=== PATIENT | male | born 1960 | race Caucasian/White ===

== ENCOUNTER 2017-03-26 11:01 | Observation (INO) ==
--- NOTE | 2017-03-26 11:06 | Emergency Department Note ---
Disposition Clinical Impression: Cellulitis, leg Qualifiers: Laterality: left Qualified Code(s): L03.116 - Cellulitis of left lower limb Disposition: Admitted As Inpatient Condition: Good Referrals: NO,PCP [Non-Partnered Physician] - Forms: ED Satisfaction Letter Time of Disposition: 12:46 Extremity Problem HPI - General Chief complaint: ED Extremity Problem,Nontraumatic Stated complaint: CELLULITIS Time Seen by Provider: 03/26/17 11:03 Source: patient, EMS Mode of arrival: EMS Limitations: no limitations Nursing Notes Reviewed: Yes Vital Signs Reviewed: Yes - History of Present Illness HPI Narrative: 56-year-old who presents with left leg pain swelling redness. Patient was seen by home health care who marked the edges the wounds and seems to have expanded. Sternum for cellulitis. 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 Consistency: constant Injury Location: left Quality: burning Radiation: none Improves with: nothing Worsens with: nothing Associated symptoms: Reports: denies other symptoms - Related Data Home Medications Medication Instructions Recorded Confirmed Losartan [Cozaar] 100 mg PO QAM #0 05/18/15 01/08/17 Potassium Chloride 10 meq PO BID 05/18/15 01/08/17 Alprazolam [Xanax] 0.5 mg PO TID PRN 08/18/15 01/08/17 Aspirin Enteric Coated [Aspirin EC] 81 mg PO QAM 08/18/15 01/08/17 Atorvastatin Calcium [Lipitor] 80 mg PO DAILY 08/18/15 01/08/17 Furosemide [Lasix] 40 mg PO QAM 08/18/15 01/08/17 HydrALAZINE 50 mg PO QID 08/18/15 01/08/17 Rivaroxaban [Xarelto] 20 mg PO QAM 08/18/15 01/08/17 Linagliptin [Tradjenta] 01/08/17 Previous Rx's Medication Instructions Recorded CloNIDine HCl 0.2 mg PO BID #14 tablet 05/20/15 Metoprolol [Lopressor] 25 mg PO BID #30 tablet 05/20/15 Allergies Allergy/AdvReac Type Severity Reaction Status Date / Time acetaminophen Allergy Difficulty Verified 08/18/15 20:16 [From Tylenol-Codeine #3] Breathing codeine Allergy Difficulty Verified 08/18/15 20:16 [From Tylenol-Codeine #3] Breathing All systems ED: reviewed and negative except as stated. Constitutional: Denies: fever, chills, weakness, weight change Eyes: Denies: eye pain, eye discharge, vision change ENT ED: Denies: ear pain, throat pain, dental pain, hearing loss, epistaxis, congestion, dysphagia Cardiovascular: Denies: chest pain, palpitations, dyspnea on exertion, edema, syncope Respiratory: Denies: cough, dyspnea, wheezes, hemoptysis, stridor Gastrointestinal: Denies: abdominal pain, nausea, vomiting, diarrhea, constipation, hematemesis, melena, hematochezia Genitourinary: Denies: urgency, dysuria, frequency, hematuria Musculoskeletal: Reports: myalgia. Denies: back pain, neck pain, arthralgia Integumentary: Denies: rash, abrasion, lesions Neurological: Denies: headache, weakness, numbness, paresthesias, confusion, abnormal gait, vertigo Psychiatric: Denies: anxiety, depression, suicidal thoughts, homicidal thoughts , auditory hallucinations, visual hallucinations Endocrine: Denies: fatigue Hematological/Lymphatic: Denies: easy bleeding, easy bruising Allergic/Immunologic: Denies: facial swelling, urticaria Past Medical History - Past Medical History Medical history: Reports: atrial fibrillation, coronary artery disease, diabetes , hyperlipidemia, hypertension, myocardial infarction, other Surgical history: Reports: other Psychiatric history: Reports: anxiety, panic disorder - Social History Smoking Status: Former smoker Smokeless Tobacco Status: No Alcohol use: Reports: rarely Drug use: Reports: none Physical Exam - General Limitations: no limitations General appearance: alert, in no apparent distress - Head Head exam: atraumatic, normocephalic, normal inspection - Eye Eye exam: Present: normal appearance, PERRL, EOMI - ENT ENT exam: normal exam, normal oropharynx, mucous membranes moist - Neck Neck exam: Present: normal inspection, full ROM, trachea midline - Chest Chest inspection: Present: normal inspection, symmetric chest wall rise - Respiratory Respiratory exam: Present: normal lung sounds bilaterally - Cardiovascular Cardiovascular exam: Present: regular rate, normal rhythm, normal heart sounds - Abdominal Exam Abdominal exam: Present: soft, Non-Tender. Absent: tenderness, distention, guarding, rebound, rigidity - Expanded Lower Extremity Exam Lower leg exam: Present: swelling, erythema Neurovascular/Tendon exam: Absent: motor deficit, sensory deficit, tendon deficit Gait: observed and normal - Back Exam Back exam: Present: normal inspection, full ROM. Absent: tenderness - Neurological Exam Neurological exam: Present: alert, oriented X3 - Psychiatric Psychiatric exam: Present: normal affect, normal mood - Skin Skin exam: Present: rash (Lower extremity) Course - Reevaluation(s) Reevaluation #1: 56-year-old comes in with pain in his left leg began yesterday redness of the skin. Venous Doppler is negative for DVT his white count is elevated at 20 we are admit him for IV antibiotics. Time: 12:46 - Consultations Consultation #1: Discussed with Dr. Golden, admit Time: 12:44 Vital Signs Temperature 99 F 03/26/17 11:03 Pulse Rate 103 03/26/17 11:03 Respiratory Rate 24 03/26/17 11:03 Blood Pressure 223/122 03/26/17 11:03 O2 Sat by Pulse Oximetry 91 03/26/17 11:03 Temperature 99 F 03/26/17 11:03 Pulse Rate 83 03/26/17 12:04 Respiratory Rate 22 03/26/17 12:04 Blood Pressure 179/114 03/26/17 12:04 O2 Sat by Pulse Oximetry 91 03/26/17 12:04 Oxygen Delivery Oxygen Delivery Nasal Cannula Extremity Problem, Nontraumati - Lab Data Lab results reviewed: Yes I reviewed the patient's lab results. Result diagrams: 03/26/17 11:27 03/26/17 11:27 Lab Results 03/26/17 03/26/17 Range/Units 11:27 11:27 WBC 20.6 H (4.3-11.1) K/mcL RBC 3.65 L (4.19-5.50) M/mcL Hgb 10.4 L (12.9-16.9) g/dL Hct 34.1 L (37.5-50.1) % MCV 93.4 (83.0-100.0) fL MCH 28.5 (28.0-33.3) pg MCHC 30.5 L (31.6-35.5) g/dL RDW 15.6 H (11.5-14.5) % Plt Count 318 (140-400) K/mcL MPV 9.2 L (9.4-12.4) fL Immature Gran % 0.6 (0-4) % Seg Neutrophils % 91.7 % Lymphocytes % 3.5 % Monocytes % 4.0 % Eosinophils % 0.0 % Basophils % 0.2 % Neutrophils # 18.9 H (1.6-8.9) K/mcL Lymphocytes # 0.7 (0.6-4.6) K/mcL Monocytes # 0.8 (0.0-1.3) K/mcL Eosinophils # 0.0 (0.0-0.6) K/mcL Basophils # 0.1 (0.0-0.2) K/mcL Sodium 138 (136-145) mEq/L Potassium 3.7 (3.5-4.5) mEq/L Chloride 101 (98-109) mEq/L Carbon Dioxide 24 (19-29) mEq/L BUN 18 (8-26) mg/dL Creatinine 1.37 H (0.72-1.25) mg/dL Est GFR ( Amer) > 60 (> 60) Est GFR (Non-Af Amer) 54 L (> 60) BUN/Creatinine Ratio 13 (6-26) Glucose 198 H (70-99) mg/dL Calculated Osmolality 293 (280-300) Calcium 8.4 L (8.6-10.8) mg/dL - Radiology Data Radiology results reviewed: Yes I reviewed the patient's radiology results. Venous Dopplers negative for DVT.
[2017-03-26 11:36] LABS: Basophils # 0.1 K/mcL (0.0-0.2); Basophils % 0.2 %; Hematocrit 34.1 % (37.5-50.1); Hemoglobin 10.4 g/dL (12.9-16.9); Immature Granulocytes % 0.6 % (0-4); Lymphocytes # 0.7 K/mcL (0.6-4.6); Lymphocytes % 3.5 %; Mean Corpuscular HGB Conc 30.5 g/dL (31.6-35.5); Mean Corpuscular Hemoglobin 28.5 pg (28.0-33.3); Mean Corpuscular Volume 93.4 fL (83.0-100.0); Mean Platelet Volume 9.2 fL (9.4-12.4); Monocytes # 0.8 K/mcL (0.0-1.3); Neutrophils # 18.9 K/mcL (1.6-8.9); Platelet Count 318 K/mcL (140-400); Red Blood Count 3.65 M/mcL (4.19-5.50); Red Cell Distribution Width 15.6 % (11.5-14.5); Segmented Neutrophils % 91.7 %
[2017-03-26 11:47] LABS: BUN/Creatinine Ratio 13 (6-26); Blood Urea Nitrogen 18 mg/dL (8-26); Calcium 8.4 mg/dL (8.6-10.8); Carbon Dioxide 24 mEq/L (19-29); Chloride 101 mEq/L (98-109); Glucose 198 mg/dL (70-99); Osmolality,Calculated 293 (280-300); Potassium 3.7 mEq/L (3.5-4.5); Sodium 138 mEq/L (136-145); eGFR For African Americans > 60 (> 60); eGFR For Non-African Americans 54 (> 60)
[2017-03-26] MEDS ORDERED: Vancomycin 1,000 MG in D5% in Water 250 ML IVPB ONE (11:58)
[2017-03-26] MEDS ORDERED: Piperacillin/Tazobactam 3.375 GM in D5% in Water (Mini-Bag+) 100 ML IVPB ONE (11:58)
--- NOTE | 2017-03-26 14:10 | Internal Med History&Physical ---
Date of Encounter: 03/26/17 Time of Encounter: 13:45 Assessment and Plan (1) Left leg cellulitis Current visit: Yes Status: Acute left leg swelling, pain and redness yesterday afternoon with associated fever of 101 and chills. He thinks he injured his leg yesterday morning wehn he was at [facility]. No nausea, no vomiting, no abdominal pain, no bleeding, no rash. No prior history of leg cellulitis but he has had multiple episodes of panniculitis. In our ED, he was afebrile. negative venous doppler of left leg. Continue IV vancomycin. (2) CKD (chronic kidney disease) stage 3, GFR 30-59 ml/min Current visit: Yes Status: Acute close monitor. avoid nephrotoxic agents. (3) Diabetes Current visit: Yes Status: Chronic ISS. diabetic diet. Qualifiers: Diabetes mellitus type: type 2 Diabetes mellitus complication status: with hyperglycemia Diabetes mellitus usp insulin use: without termite helper use Qualified Code(s): E11.65 - Type 2 diabetes mellitus with hyperglycemia (4) Hypertension Current visit: Yes Status: Chronic not controlled. resume home dose of hydralazine, clonidine and toprol. hydralazine prn. Qualifiers: Hypertension type: essential hypertension Qualified Code(s): I10 - Essential (primary) hypertension (5) INGRID (obstructive sleep apnea) Current visit: No Status: Chronic non-compliance with cpap (6) Morbid obesity with BMI of 60.0-69.9, adult Current visit: No Status: Chronic bmi 61 Internal Medicine - H&P: HPI Chief complaint: left leg swelling and erythma for a few days. Admitted From: Home Plans for Post Hospital Care: Home History of present illness: Mr. Lucero is a 56 year old male with past medical history of atrial fibrillation , CAD, DM, HTN, INGRID not on CPAP and severe obesity BMI 61 who developed left leg swelling, pain and redness yesterday afternoon with associated fever of 101 and chills. He thinks he injured his leg yesterday morning wehn he was at [facility]. No nausea, no vomiting, no abdominal pain, no bleeding, no rash. No prior history of leg cellulitis but he has had multiple episodes of panniculitis. In our ED, he was afebrile. Past Med Surg Social Fam HX - Past Medical History Medical history: atrial fibrillation, coronary artery disease, diabetes, hyperlipidemia, hypertension, myocardial infarction, other Psychiatric history: anxiety, panic disorder - Past Surgical History Surgical History: other - Social History Smoking Status: Former smoker Smokeless Tobacco Status: No Alcohol use: rarely Drug use: none - Family History Father Adopted: No Family Member Ethnicity: Non- Living Status: Hx Family Cardiac Disorders: Yes Hx Family Respiratory Disorders: Yes Hx Family Cancer: Yes Hx Family GI Disorders: No Hx Family Endocrine Disorder: Yes Hx Family Neuromuscular Disorders: No Hx Family Neurologic Disorders: Yes Hx Family HEENT Disorders: No Hx Family Autoimmune Disorders: No Internal Medicine - H&P: Meds Potassium Chloride 10 meq PO BID 05/18/15 [History] CloNIDine HCl 0.2 mg PO BID #14 tablet 05/20/15 [Rx] Alprazolam [Xanax] 0.5 mg PO TID PRN 08/18/15 [History] Aspirin Enteric Coated [Aspirin EC] 81 mg PO QAM 08/18/15 [History] Rivaroxaban [Xarelto] 20 mg PO QAM 08/18/15 [History] Linagliptin [Tradjenta] 5 mg PO DAILY 01/08/17 [History] Hydralazine HCl 50 mg PO TID 03/26/17 [History] Metoprolol XL (24 HR) Succ [Toprol XL] 25 mg PO DAILY 03/26/17 [History] Spironolactone [Aldactone] 100 mg PO DAILY 03/26/17 [History] Allergies acetaminophen [From Tylenol-Codeine #3] Allergy (Verified 08/18/15 20:16) Difficulty Breathing codeine [From Tylenol-Codeine #3] Allergy (Verified 08/18/15 20:16) Difficulty Breathing All Systems PM: A 10-system review of systems was performed and is negative for pertinent findings except as documented above in the HPI. - Constitutional Vitals: Temp Pulse Resp BP Pulse Ox 99 F 80 26 188/88 92 03/26/17 11:03 03/26/17 13:08 03/26/17 13:08 03/26/17 13:08 03/26/17 13:08 General appearance: Present: cooperative, A&O X 3, pleasant, no acute distress, answers questions appropriately - Neck Neck exam general surgery: Present: supple, trachea midline. Absent: lymphadenopathy - Respiratory Respiratory exam: Present: CTAB - Cardiovascular Cardiovascular exam: Present: RRR - GI/Abdominal GI/Abdominal exam: Present: normal bowel sounds, soft. Absent: tenderness Additional comments: abundant subcutaneous fat that is hanging out of the hospital bed. - Extremities Exam Additional comments: left leg: swelling, erythema and very tender to palpation. - Neurological Exam Neurological exam: Present: alert, oriented X3. Absent: facial droop, speech deficit - Skin Additional comments: there are multiple break on his skin at his abdominal wall. Internal Med - H&P Results - Labs CBC & Chem 7: 03/26/17 11:27 03/26/17 11:27
[2017-03-26] MEDS ORDERED: Ondansetron 4 MG/2 ML VIAL IVP PRN (14:12)
[2017-03-26] MEDS ORDERED: Naloxone 0.4 MG/ML INJ IVP PRN (14:12)
[2017-03-26] MEDS ORDERED: *HR* OxyCODONE Immed Rel 5 MG TABLET PO PRN (14:14)
--- NOTE | 2017-03-26 14:34 | Venous Imaging Report ---
LE Venous Duplex Patient Name:Car Lucero Order Number:[id number] Procedure Date:03/26/2017 Date:9Age:56 yrs Gender:Male Location:[facility] ED Room #: [place] Manager:Lexi Gray RVT, RDCS Referring MD:Chico Kat MD mounted police:None Reading MD:Mitesh Lamb MD Primary Indications:left leg swelling and redness Secondary Indications: Risk Factors Yes/No Hx of DVT No Anticoagulants Yes Impressions: Normal left lower extremity deep and superficial venous exam. Normal contralateral common femoral vein. Recommendations: Test completed on 03/26/2017 at 12:51:28 pm. Critical findings reported to Dr. Kat in person at 12:51:41 pm on 03/26/2017 by Lexi Gray RVT, RDCS. Findings Venous Duplex Results: Right: Venous imaging of the lower extremity reveals full patency and normal vessel compressibility of the right common femoral. Doppler signals in the evaluated veins were normal. Left: Venous imaging of the lower extremity reveals full patency and normal vessel compressibility of the left distal iliac, left common femoral, left superficial femoral, left popliteal, left posterior tibial, left peroneal, left saphenofemoral junction, left great saphenous and left lesser saphenous. Doppler signals in the evaluated veins were normal. The left posterior tibial and left peroneal veins were not well visualized. Lower Extremity Venous Duplex Side Vein Compress Spontaneous Flow Augment Diameter (cm) Depth (cm) Left Distal Iliac Normal Yes Phasic Yes Left Common Femoral Normal Yes Phasic Yes Left Superficial Femoral Normal Yes Phasic Yes Left Popliteal Normal Yes Phasic Yes Left Posterior Tibial Normal Yes Phasic Yes Left Peroneal Normal Yes Phasic Yes Left Saphenofemoral Junction Normal Yes Phasic Yes Left Great Saphenous Normal Yes Phasic Yes Left Lesser Saphenous Normal Yes Phasic Yes Right Common Femoral Normal Yes Phasic Yes Updated by Mitesh Lamb MD on 03/26/2017 2:24:44 PM electronically signed on 03/26/2017 2:26:49 PM with status of Final
[2017-03-26] MEDS ORDERED: Dextrose Gel 15 GM PO PRN ×2 (14:52)
[2017-03-26] MEDS ORDERED: D5% in Water 1,000 ML IVC PRN (14:52)
[2017-03-26] MEDS ORDERED: *HR* Dextrose 50 % in Water (Syg) 50 ML SYRINGE IVP PRN (14:52)
[2017-03-26] MEDS ORDERED: Vancomycin 2,000 MG in D5% in Water 250 ML IVPB SCH (15:00)
[2017-03-26] MEDS ORDERED: hydrALAZINE 25 MG TABLET PO SCH (15:00)
[2017-03-26] MEDS: Vancomycin 2,000 MG in D5% in Water 500 ML IVPB SCH (16:23)
[2017-03-26] MEDS: Insulin LISPRO 300 UNITS/3 ML VIAL SQ SCH ×2 (17:09→21:06)
[2017-03-26] MEDS ORDERED: cloNIDine HCl 0.1 MG TABLET PO SCH (21:00)
[2017-03-26] MEDS: cloNIDine HCl 0.1 MG TABLET PO SCH (21:13)
[2017-03-26] MEDS: hydrALAZINE 25 MG TABLET PO SCH (21:13)
[2017-03-26] MEDS: 0.9 % Sodium Chloride 1,000 ML IVC SCH (22:02)
[2017-03-26] MEDS ORDERED: Acetaminophen 325 MG TABLET PO PRN (22:20)
[2017-03-27] MEDS: Vancomycin 2,000 MG in D5% in Water 500 ML IVPB SCH ×2 (03:20→15:15)
[2017-03-27] MEDS: ALPRAZolam 0.5 MG TABLET PO PRN (03:39)
[2017-03-27 03:40] LABS: Basophils # 0.1 K/mcL (0.0-0.2); Basophils % 0.3 %; Hematocrit 31.4 % (37.5-50.1); Hemoglobin 9.4 g/dL (12.9-16.9); Immature Granulocytes % 0.6 % (0-4); Lymphocytes # 1.2 K/mcL (0.6-4.6); Lymphocytes % 7.8 %; Mean Corpuscular HGB Conc 29.9 g/dL (31.6-35.5); Mean Corpuscular Hemoglobin 27.9 pg (28.0-33.3); Mean Corpuscular Volume 93.2 fL (83.0-100.0); Mean Platelet Volume 9.9 fL (9.4-12.4); Monocytes # 0.9 K/mcL (0.0-1.3); Neutrophils # 13.3 K/mcL (1.6-8.9); Platelet Count 273 K/mcL (140-400); Red Blood Count 3.37 M/mcL (4.19-5.50); Red Cell Distribution Width 15.4 % (11.5-14.5); Segmented Neutrophils % 85.3 %
[2017-03-27 03:52] LABS: Hemoglobin A1C 5.8 %
[2017-03-27 03:53] LABS: BUN/Creatinine Ratio 14 (6-26); Blood Urea Nitrogen 18 mg/dL (8-26); Carbon Dioxide 25 mEq/L (19-29); Chloride 101 mEq/L (98-109); Potassium 3.6 mEq/L (3.5-4.5); Sodium 135 mEq/L (136-145)
[2017-03-27 03:54] LABS: Calcium 7.8 mg/dL (8.6-10.8); Glucose 151 mg/dL (70-99); Magnesium 1.4 mg/dL (1.6-2.6); Osmolality,Calculated 285 (280-300); eGFR For African Americans > 60 (> 60); eGFR For Non-African Americans 57 (> 60)
[2017-03-27] MEDS: hydrALAZINE 25 MG TABLET PO SCH ×2 (08:54→20:07)
[2017-03-27] MEDS: Aspirin Enteric Coated 81 MG Tablet PO SCH (08:54)
[2017-03-27] MEDS: cloNIDine HCl 0.1 MG TABLET PO SCH ×3 (08:54→20:07)
[2017-03-27] MEDS: Insulin LISPRO 300 UNITS/3 ML VIAL SQ SCH ×4 (08:54→22:12)
[2017-03-27] MEDS: Metoprolol XL (24 HR) Succ 25 MG TAB.ER.24H PO SCH (08:55)
[2017-03-27] MEDS: *HR* Rivaroxaban 10 MG TABLET PO SCH (08:55)
--- NOTE | 2017-03-27 10:35 | Internal Med Progress Note ---
<Latonya Patel - Last Filed: 03/27/17 14:25> Date of Encounter: 03/27/17 Time of Encounter: 09:00 - Assessment and plan (1) Left leg cellulitis Current Visit: Yes Status: Acute Assessment and plan: Patient with extreme obesity, diabetes, and lower extremity chronic vascular changes who presumably injured his leg and subsequently developed cellulitis of the left lower extremity. Patient has been having fevers and chills however he denies nausea and vomiting. Lower extremity venous Doppler demonstrated: Full patency and compressibility throughout the left lower extremity and the right lower extremity. No evidence of DVT. On admission laboratory results demonstrated leukocytosis with left shift. Today: WBCs 15.6 < 20.6, neutrophils 13.3 < 18.9 Supportive therapy and pain control IV fluids at maintenance 100 miles an hour Continue IV vancomycin Continue daily lower extremity evaluation to assess for advancement versus resolution of lower extremity cellulitis. Cellulitic edges are marked with pen. Today there is no evidence of advancement. Continue diabetic management and glucose control to aid in healing. Consult wound care Patient has home health for management of chronic wound on the panniculus. He would like to continue home health on discharge for cellulitic changes. Patient is adamant that he would like to be discharged tomorrow to attend his birthday constitution party. Discussed with patient the importance of continuing his antibiotic regimen and remaining inpatient. PT and OT for evaluation patient likely need care home/rehabilitation prior to going home. Patient declines this at this time. PT will recommend home health to address chronic needs for endurance and tolerance. The assessment and plan as outlined above was discussed with the patient and/or family members who expressed understanding and agreement. All questions were answered. (2) INGRID (obstructive sleep apnea) Current Visit: Yes Status: Chronic Assessment and plan: On physical exam, observed loud snoring and apneic events upon entering the room. Discussed this with patient who admitted that he had several sleep studies done in the past that demonstrated he had sleep apnea. He also states that he has had a CPAP at home however he does not wear it at night stating that he used to tear at off so he just quit using it. Long-term risks associated with noncompliance discussed with patient to include pulmonary hypertension and cardiac complications. Patient was strongly encouraged to continue his CPAP and reassessment/further evaluation with pulmonology. Patient states that he will may be consider it. The assessment and plan as outlined above was discussed with the patient and/or family members who expressed understanding and agreement. All questions were answered. (3) Morbid obesity with BMI of 60.0-69.9, adult Current Visit: Yes Status: Chronic (4) Diabetes Current Visit: Yes Status: Chronic Assessment and plan: Hold oral hypoglycemics Daily Glucose checks per protocol Sliding-scale insulin corrective low dose per protocol Patient appears relatively well controlled as his hemoglobin A1c is 5.8. Qualifiers: Diabetes mellitus type: type 2 Diabetes mellitus complication status: with hyperglycemia Diabetes mellitus tank terminal gauger insulin use: without mcfp use Qualified Code(s): E11.65 - Type 2 diabetes mellitus with hyperglycemia (5) CKD (chronic kidney disease) stage 3, GFR 30-59 ml/min Current Visit: Yes Status: Acute Assessment and plan: Daily monitoring of renal function via BUN, creatinine, GFR on daily labs. BUN: 18 = 18 Creatinine: 1.29 < 1.37 GFR: >60 Renally dose medications. Avoid nephrotoxic medications. - Subjective Interval history: Patient was seen and examined. Events overnight include an incident for which patient attempted to get up to use the restroom however upon standing he urinated on himself and fell forward landing on his knees however due to his extreme obesity was unable to get himself off the floor. 6 nurses attempted to aid the patient however ultimately a lift was used to put patient back into bed. Upon discussing the incident with patient he states that he was " perfectly stable "however he just slipped in a puddle of urine. Patient is adamant that he can get up himself. However patient was unable to roll over in the bed on his own for physical examination. Patient is a fall risk. Patient reports that he has home health care for his abdominal wound that is healing well and that he would like to be seen outpatient with home health for care of his lower extremity. Patient reports fevers and chills overnight. MAXIMUM TEMPERATURE 100.4. Hypertension 154/66 hydralazine when necessary and metoprolol daily. Patient is continued on vancomycin drip without flushing/ rash. Patient's is at bedside. Patient states that he would like to go home tomorrow for his birthday as his family has "planned a big to do ". - Constitutional Vitals: Temp Pulse Resp BP Pulse Ox 98.6 F 67 20 154/66 4 03/27/17 06:42 03/27/17 06:42 03/27/17 06:42 03/27/17 06:42 03/27/17 09:18 General appearance: Present: cooperative, A&O X 3, pleasant, no acute distress, answers questions appropriately Exam: General: Cooperative, pleasant, no acute distress, alert and oriented 3, answers questions appropriately, on initial examination, patient was snoring loudly exhibiting apneic episodes HEENT: Normocephalic, atraumatic, neck supple, trachea midline, Conjunctiva pink , sclera anicteric, EOMI, PERRL, oral mucosa moist, no orophargeal erythema or exudates, patient is wearing his glasses. Respiratory: No accessory muscle usage, diminished lung sounds throughout, clear to auscultation bilaterally, no wheezes/rhonchi/rales appreciated Cardiovascular: Distant sounds Regular rate and rhythm, S1 and S2 present, no murmurs/rubs/gallops/clicks appreciated GI/abdominal: Impressively large panniculus with healing wound, nontender, soft , normal bowel sounds, no peritoneal signs Extremities: Left calf tenderness, noncyanotic, chronic lower extremity vascular changes, left lower extremity with erythema and cellulitis with skin markings, warmth, bilateral pedal edema appreciated, lower extremity pulses are not palpable due to edema and subcutaneous fat, no weeping or open wounds are appreciable on the lower extremities. Neurological: Alert and oriented 3, no facial droop, no focal deficits Skin: Dry, intact, abnormal purple/red lower extremity chronic venous stasis changes with left extremity exhibiting cellulitic changes erythema, warmth just below the knee and distal to the ankle. Internal Medicine: Result - Labs CBC & Chem 7: 03/27/17 02:58 03/27/17 02:58 Labs: Short CBC 03/27/17 Range/Units 02:58 WBC 15.6 H (4.3-11.1) K/mcL Hgb 9.4 L (12.9-16.9) g/dL Hct 31.4 L (37.5-50.1) % Plt Count 273 (140-400) K/mcL Neutrophils # 13.3 H (1.6-8.9) K/mcL BMP 03/27/17 02:58 Sodium 135 L Potassium 3.6 Chloride 101 Carbon Dioxide 25 BUN 18 Creatinine 1.29 H Glucose 151 H Calcium 7.8 L Consult Discharge Plan - Plan Referrals: Wendy Izaguirre MD [Primary Care Provider] - <Manuelito Duenas Giuseppe - Last Filed: 03/27/17 15:13> Date of Encounter: 03/27/17 - Constitutional Vitals: Temp Pulse Resp BP Pulse Ox 99.9 F H 56 22 137/79 95 03/27/17 15:07 03/27/17 15:07 03/27/17 15:07 03/27/17 15:07 03/27/17 15:07 Internal Medicine: Result - Labs CBC & Chem 7: 03/27/17 02:58 03/27/17 02:58 Labs: Short CBC 03/27/17 Range/Units 02:58 WBC 15.6 H (4.3-11.1) K/mcL Hgb 9.4 L (12.9-16.9) g/dL Hct 31.4 L (37.5-50.1) % Plt Count 273 (140-400) K/mcL Neutrophils # 13.3 H (1.6-8.9) K/mcL BMP 03/27/17 02:58 Sodium 135 L Potassium 3.6 Chloride 101 Carbon Dioxide 25 BUN 18 Creatinine 1.29 H Glucose 151 H Calcium 7.8 L - Attending Attestation I examined this patient and my medical decision-making was reviewed with the OPHTHALMIC TECHNOLOGIST/PA/Advanced Practice Nurse/Resident Physician. I agree with the documented findings, disposition and treatment plan as described except to the extent set forth below. Continue with iv vancomycin. Monitor vanc levels. Agree with resident.
[2017-03-27] MEDS: 0.9 % Sodium Chloride 1,000 ML IVC SCH ×2 (12:22)
[2017-03-27] MEDS: Magnesium Oxide 400 MG TABLET PO SCH (12:39)
[2017-03-28] MEDS: 0.9 % Sodium Chloride 1,000 ML IVC SCH ×2 (00:31→13:07)
[2017-03-28] MEDS: Vancomycin 2,000 MG in D5% in Water 500 ML IVPB SCH ×2 (04:32→16:46)
[2017-03-28] MEDS: Insulin LISPRO 300 UNITS/3 ML VIAL SQ SCH ×4 (08:39→23:02)
[2017-03-28] MEDS: hydrALAZINE 25 MG TABLET PO SCH ×2 (08:40→19:40)
[2017-03-28] MEDS: cloNIDine HCl 0.1 MG TABLET PO SCH ×3 (08:40→19:40)
[2017-03-28] MEDS: Aspirin Enteric Coated 81 MG Tablet PO SCH (08:40)
[2017-03-28] MEDS: Magnesium Oxide 400 MG TABLET PO SCH (08:40)
[2017-03-28] MEDS: Metoprolol XL (24 HR) Succ 25 MG TAB.ER.24H PO SCH (08:40)
[2017-03-28] MEDS: *HR* Rivaroxaban 10 MG TABLET PO SCH (09:42)
--- NOTE | 2017-03-28 16:19 | Internal Med Progress Note ---
Date of Encounter: 03/28/17 Time of Encounter: 16:17 - Assessment and plan (1) Obesity (BMI 35.0-39.9 without comorbidity) Current Visit: Yes Status: Acute Assessment and plan: Counseling provided (2) Diabetes Current Visit: Yes Status: Chronic Assessment and plan: On Accu-Chek 4 times a day with sliding scale coverage hemoglobin A1c 5.8 Qualifiers: Diabetes mellitus type: type 2 Diabetes mellitus complication status: without complication Diabetes mellitus director long term care insulin use: without director long term care use Qualified Code(s): E11.9 - Type 2 diabetes mellitus without complications (3) Cellulitis, leg Current Visit: Yes Status: Acute Assessment and plan: Bilateral lower extremity chronic stasis dermatitis as well as acute cellulitis. White count was elevated in the range of 20,000 on admission. IV vancomycin has been started and since then white count has dropped down to 15, 000 range and her rash is receding from marker lines. Ultrasound of lower extremity was done which was negative for DVT and his tenderness has also gone down. Since white count was quite elevated therefore will continue IV vancomycin for 2 weeks and will order a PICC line. I discussed this patient who showed good understanding and agreement Qualifiers: Laterality: unspecified laterality Qualified Code(s): L03.119 - Cellulitis of unspecified part of limb (4) CKD (chronic kidney disease) stage 3, GFR 30-59 ml/min Current Visit: Yes Status: Acute Assessment and plan: Creatinine slightly elevated seems to be improving (5) Hypomagnesemia Current Visit: Yes Status: Acute Assessment and plan: Magnesium 1.4 kg of IV magnesium will be given. - Time Spent With Patient 25 - 35 minutes - Subjective Interval history: Mr. Car Lucero is a 56-year-old morbidly obese male with underlying diabetes and venous stasis dermatitis of lower extremity presented with bilateral lower extremity cellulitis with elevated white count in the range of 20,000. IV vancomycin as started and there his rash is getting better. He might need full 2 weeks of IV vancomycin. - Constitutional Vitals: Temp Pulse Resp BP Pulse Ox 98.5 F 68 15 149/78 98 03/28/17 15:16 03/28/17 15:16 03/28/17 15:16 03/28/17 15:16 03/28/17 15:16 General appearance: Present: cooperative, A&O X 3, pleasant, no acute distress, answers questions appropriately - Head Head exam: Present: atraumatic, normocephalic - Eye Eye exam: Present: PERRL, conjuntiva pink, sclera anicteric Pupils: Present: PERRL - Neck Neck exam general surgery: Present: supple, trachea midline. Absent: lymphadenopathy - Respiratory Respiratory exam: Present: CTAB. Absent: accessory muscle use, rales, rhonchi, wheezes - Cardiovascular Cardiovascular exam: Present: RRR, +S1, +S2. Absent: diastolic murmur, gallop, rubs, systolic murmur - GI/Abdominal GI/Abdominal exam: Present: normal bowel sounds, soft, no peritoneal signs. Absent: distended, tenderness - Expanded Lower Extremities Exam Lower Leg exam: Present: erythema, swelling (Bilateral lower extremity chronic dermatitis swelling and rash which seems to be receding from the marked lines. Calf and popliteal fossae does not appear to be tender Bruce sign negative) Internal Medicine: Result - Labs CBC & Chem 7: 03/27/17 02:58 03/27/17 02:58 Consult Discharge Plan - Plan Referrals: Wendy Izaguirre MD [Primary Care Provider] -
[2017-03-28] MEDS: ALPRAZolam 0.5 MG TABLET PO PRN (19:40)
[2017-03-29] MEDS: Vancomycin 2,000 MG in D5% in Water 500 ML IVPB SCH ×2 (04:41→15:55)
[2017-03-29] MEDS: Magnesium Oxide 400 MG TABLET PO SCH (08:44)
[2017-03-29] MEDS: hydrALAZINE 25 MG TABLET PO SCH (08:44)
[2017-03-29] MEDS: Aspirin Enteric Coated 81 MG Tablet PO SCH (08:44)
[2017-03-29] MEDS: cloNIDine HCl 0.1 MG TABLET PO SCH ×2 (08:44→15:54)
[2017-03-29] MEDS: *HR* Rivaroxaban 10 MG TABLET PO SCH (08:44)
[2017-03-29] MEDS: Metoprolol XL (24 HR) Succ 25 MG TAB.ER.24H PO SCH (08:45)
[2017-03-29 11:23] VITALS: BP 167/91
[2017-03-29] MEDS: Insulin LISPRO 300 UNITS/3 ML VIAL SQ SCH (11:40)
--- NOTE | 2017-03-29 13:26 | Discharge Summary ---
Date of Encounter: 03/29/17 Time of Encounter: 13:24 - Discharge Diagnosis (1) Obesity (BMI 35.0-39.9 without comorbidity) Priority: Secondary Status: Acute (2) Diabetes Priority: Secondary Status: Chronic Qualifiers: Diabetes mellitus type: type 2 Diabetes mellitus complication status: without complication Diabetes mellitus mcc insulin use: without mcc use Qualified Code(s): E11.9 - Type 2 diabetes mellitus without complications (3) Cellulitis, leg Priority: Primary Status: Acute Qualifiers: Laterality: unspecified laterality Qualified Code(s): L03.119 - Cellulitis of unspecified part of limb (4) CKD (chronic kidney disease) stage 3, GFR 30-59 ml/min Priority: Secondary Status: Acute (5) Hypomagnesemia Priority: Secondary Status: Acute - Discharge Medications Prescriptions: Vancomycin/0.9 % Sod Chloride [Vancomycin-0.9% NaCl 2 G/250] 2 gm IV Q12HR 11 Days ALPRAZolam [Xanax 0.5 MG Tablet] 0.5 mg PO TID PRN #20 tablet NS PRN Reason: Anxiety Magnesium Oxide [Mag-Ox] 400 mg PO DAILY #60 tablet Rivaroxaban [Xarelto] 20 mg PO QAM #30 tablet Home Medications: Potassium Chloride 10 meq PO BID 05/18/15 [History] CloNIDine HCl 0.2 mg PO BID #14 tablet 05/20/15 [Rx] Alprazolam [Xanax] 0.5 mg PO TID PRN 08/18/15 [History] Aspirin Enteric Coated [Aspirin EC] 81 mg PO QAM 08/18/15 [History] Linagliptin [Tradjenta] 5 mg PO DAILY 01/08/17 [History] Hydralazine HCl 50 mg PO TID 03/26/17 [History] Metoprolol XL (24 HR) Succ [Toprol Xl] 25 mg PO DAILY 03/26/17 [History] Spironolactone [Aldactone] 100 mg PO DAILY 03/26/17 [History] ALPRAZolam [Xanax 0.5 MG Tablet] 0.5 mg PO TID PRN #20 tablet NS 03/29/17 [Rx] Magnesium Oxide [Mag-Ox] 400 mg PO DAILY #60 tablet 03/29/17 [Rx] Rivaroxaban [Xarelto] 20 mg PO QAM #30 tablet 03/29/17 [Rx] Vancomycin/0.9 % Sod Chloride [Vancomycin-0.9% NaCl 2 G/250] 2 gm IV Q12HR 11 Days 03/29/17 [Rx] Allergies/Adverse Reactions: Allergies acetaminophen [From Tylenol-Codeine #3] Allergy (Verified 08/18/15 20:16) Difficulty Breathing codeine [From Tylenol-Codeine #3] Allergy (Verified 08/18/15 20:16) Difficulty Breathing Date of admission: 03/26/17 13:16 Primary care physician: Wendy Izaguirre MD Consults: 03/26/17 15:11 Consult to Entry Level Finance [CONS] Routine Reason for SW Consult: Had [facility] prior to admission 03/26/17 17:03 Consult to Wound Care [CONS] Routine Reason for Consult: L lower abdominal wound. Seen in wound care by Dr. 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 Med Ray a 57-year-old male admitted for bilateral lower extremity cellulitis. He was started on vancomycin that has seemed to improve his rash and pain and also hasreduced his white count from 20,000-15,000 They plan to continue him on IV vancomfor 2 weeks and PICC line has been placed in his right arm. Home care consultation will be requested Upon patient's request he will also be a prescription also for Xarelto and Xanax He is advised to follow with his familyas outpatient. Leg ultrasound done during this hospitalization was negative for DVT. Hospital course: Mr. Lucero is a 57 year old male Time spent discussing smoking cessation with patient: 3 to 10 minutes - Time Spent with Patient Total time spent providing and/or coordinating discharge services: Greater than 30 minutes - Constitutional Vitals: Temp Pulse Resp BP Pulse Ox 98.0 F 69 20 167/91 96 03/29/17 11:19 03/29/17 11:19 03/29/17 11:19 03/29/17 11:19 03/29/17 11:19 General appearance: Present: cooperative, A&O X 3, pleasant, no acute distress, answers questions appropriately - Head Head exam: Present: atraumatic, normocephalic - Eye Eye exam: Present: PERRL, conjuntiva pink, sclera anicteric Pupils: Present: PERRL - Neck Neck exam general surgery: Present: supple, trachea midline. Absent: lymphadenopathy - Respiratory Respiratory exam: Present: CTAB. Absent: accessory muscle use, rales, rhonchi, wheezes - Cardiovascular Cardiovascular exam: Present: RRR, +S1, +S2. Absent: diastolic murmur, gallop, rubs, systolic murmur - GI/Abdominal GI/Abdominal exam: Present: normal bowel sounds, soft, no peritoneal signs. Absent: distended, tenderness - Extremities Exam Extremities exam: Present: warm, radial pulses palpable and symetrical. Absent : calf tenderness, cyanotic, pedal edema Additional comments: bilateral lower extremity examined and the rash in front and the back of both legs is improving. No significant tenderness now .pulses are palpable and no significant swelling or skin break. - Neurological Exam Neurological exam: Present: CN II-XII intact, oriented X3, no focal deficits. Absent: pronater drift, facial droop, speech deficit - Skin Skin exam: Present: dry, intact
--- NOTE | 2017-03-29 13:56 | Physician Discharge Referral ---
Home Health/Hosp Referral Info Attending Provider: uriel Provider in Charge Post Discharge: PCP (patient needs IVantibiotics mainly vancomycin for 11 days. Please send CBC CMP and vancomycin trough level twice a weekto the familyphysician) - Diagnosis (1) Obesity (BMI 35.0-39.9 without comorbidity) Status: Acute (2) Diabetes Status: Chronic (3) Cellulitis, leg Status: Acute (4) CKD (chronic kidney disease) stage 3, GFR 30-59 ml/min Status: Acute (5) Hypomagnesemia Status: Acute - Respiratory Orders Smoking Cessation: Smoking cessation has been advised. For more information, call the [place] [employer] Quit Line at [phone]. - Transfer Medications Prescriptions: Vancomycin/0.9 % Sod Chloride [Vancomycin-0.9% NaCl 2 G/250] 2 gm IV Q12HR 11 Days ALPRAZolam [Xanax 0.5 MG Tablet] 0.5 mg PO TID PRN #20 tablet NS PRN Reason: Anxiety Magnesium Oxide [Mag-Ox] 400 mg PO DAILY #60 tablet Rivaroxaban [Xarelto] 20 mg PO QAM #30 tablet Home Medications: Potassium Chloride 10 meq PO BID 05/18/15 [History] CloNIDine HCl 0.2 mg PO BID #14 tablet 05/20/15 [Rx] Alprazolam [Xanax] 0.5 mg PO TID PRN 08/18/15 [History] Aspirin Enteric Coated [Aspirin EC] 81 mg PO QAM 08/18/15 [History] Linagliptin [Tradjenta] 5 mg PO DAILY 01/08/17 [History] Hydralazine HCl 50 mg PO TID 03/26/17 [History] Metoprolol XL (24 HR) Succ [Toprol Xl] 25 mg PO DAILY 03/26/17 [History] Spironolactone [Aldactone] 100 mg PO DAILY 03/26/17 [History] ALPRAZolam [Xanax 0.5 MG Tablet] 0.5 mg PO TID PRN #20 tablet NS 03/29/17 [Rx] Magnesium Oxide [Mag-Ox] 400 mg PO DAILY #60 tablet 03/29/17 [Rx] Rivaroxaban [Xarelto] 20 mg PO QAM #30 tablet 03/29/17 [Rx] Vancomycin/0.9 % Sod Chloride [Vancomycin-0.9% NaCl 2 G/250] 2 gm IV Q12HR 11 Days 03/29/17 [Rx] Allergies/Adverse Reactions: Allergies acetaminophen [From Tylenol-Codeine #3] Allergy (Verified 08/18/15 20:16) Difficulty Breathing codeine [From Tylenol-Codeine #3] Allergy (Verified 08/18/15 20:16) Difficulty Breathing Certification: Further, I certify that my clinical findings support that this patient is homebound (i.e. absences from home require considerable and taxing effort and are for medical reasons or temple services or infrequently or short duration when for other reasons) because: Homebound Reason: Patient requires assistance of a person or device to safely leave home Attestation: My signature below is to certify that this patient is under my care and that I, or nurse practitioner, or a physician's periodicals library assistant working with me, has a face-to -face encounter with this patient.
[2017-03-29] MEDS ORDERED: Aminoglycoside Consult 1 EACH MC ONE (17:36)
[2017-03-30] MEDS ORDERED: Vancomycin 1,500 MG in D5% in Water 250 ML IVPB SCH (04:00)
== END 2017-03-29 17:37 | disposition home health service (06) ==
LOC: EMEROO 11:01 → 3NENU 11:01
PROVIDERS: ADMIT Internal Medicine; ATTEND Internal Medicine Endocrinology, Diabetes & Metabolism

== ENCOUNTER 2017-08-22 23:26 | Observation (INO) ==
[2017-08-23] MEDS ORDERED: Vancomycin 2,000 MG in D5% in Water 500 ML IVPB ONE (01:18)
--- NOTE | 2017-08-23 01:22 | Emergency Department Note ---
Disposition Clinical Impression: ALKA (acute kidney injury) Cellulitis Qualifiers: Site of cellulitis: unspecified site Qualified Code(s): L03.90 - Cellulitis, unspecified Disposition: Admitted As Inpatient Condition: Good Referrals: Wendy Izaguirre MD [Primary Care Provider] - Forms: ED Satisfaction Letter General Adult HPI - General Chief complaint: ED Skin/Abscess/Foreign Body Stated complaint: "Celulitis/Lower Abd Pain" Time Seen by Provider: 08/23/17 01:18 Source: EMS Limitations: no limitations Nursing Notes Reviewed: Yes Vital Signs Reviewed: Yes - History of Present Illness HPI Narrative: 57-year-old male with a past medical history of diabetes, A. fib (on Xarelto), hypertension, obesity. He presents due to recurrent cellulitis of his pannus. He states over the last 2-3 days he had a fever of 102 and increased pain and redness in his pannus. He denies any nausea or vomiting. He denies any chest pain or shortness of breath. Pain Scale: 0 Consistency: constant Improves with: nothing Worsens with: nothing Associated symptoms: Reports: denies other symptoms Treatments Prior to Arrival: none - Related Data Home Medications Medication Instructions Recorded Confirmed Potassium Chloride 10 meq PO BID 05/18/15 03/26/17 Alprazolam [Xanax] 0.5 mg PO TID PRN 08/18/15 03/26/17 Aspirin Enteric Coated [Aspirin EC] 81 mg PO QAM 08/18/15 03/26/17 Linagliptin [Tradjenta] 5 mg PO DAILY 01/08/17 03/26/17 Hydralazine HCl 50 mg PO TID 03/26/17 03/26/17 Metoprolol XL (24 HR) Succ [Toprol 25 mg PO DAILY 03/26/17 03/26/17 Xl] Spironolactone [Aldactone] 100 mg PO DAILY 03/26/17 03/26/17 Previous Rx's Medication Instructions Recorded CloNIDine HCl 0.2 mg PO BID #14 tablet 05/20/15 ALPRAZolam [Xanax 0.5 MG Tablet] 0.5 mg PO TID PRN #20 tablet NS 03/29/17 Magnesium Oxide [Mag-Ox] 400 mg PO DAILY #60 tablet 03/29/17 Rivaroxaban [Xarelto] 20 mg PO QAM #30 tablet 03/29/17 Vancomycin/0.9 % Sod Chloride 2 gm IV Q12HR 11 Days plast..bag 03/29/17 [Vancomycin-0.9% NaCl 2 G/250] Allergies Allergy/AdvReac Type Severity Reaction Status Date / Time codeine Allergy Difficulty Verified 08/22/17 23:32 [From Tylenol-Codeine #3] Breathing All systems ED: reviewed and negative except as stated. Constitutional: Reports: fever ENT ED: Denies: throat pain Cardiovascular: Denies: chest pain Respiratory: Denies: cough Gastrointestinal: Denies: nausea, vomiting Musculoskeletal: Denies: back pain Integumentary: Reports: rash Endocrine: Denies: fatigue Past Medical History - Past Medical History Medical history: Reports: atrial fibrillation, coronary artery disease, diabetes , hyperlipidemia, hypertension, myocardial infarction, other Surgical history: Reports: other Psychiatric history: Reports: anxiety, panic disorder - Social History Smoking Status: Former smoker Smokeless Tobacco Status: No Alcohol use: Reports: rarely Drug use: Reports: none Physical Exam - General Limitations: no limitations General appearance: alert, in no apparent distress - Head Head exam: atraumatic - Eye Eye exam: Present: normal appearance, PERRL - ENT ENT exam: normal exam, normal oropharynx - Neck Neck exam: Present: normal inspection - Chest Chest inspection: Present: normal inspection - Respiratory Respiratory exam: Present: normal lung sounds bilaterally. Absent: respiratory distress - Cardiovascular Cardiovascular exam: Present: regular rate, normal rhythm - Abdominal Exam Abdominal exam: Present: other (He does have some mild erythema and warmth to the pannus) - Extremities Exam Extremities exam: Present: normal inspection - Skin Skin exam: Present: warm, dry Course Course Narrative: He does have cellulitis of the pannus on exam. In addition he does have mildly elevated white count. No signs of sepsis currently as he is not tachycardic or hypotensive. I did give him vancomycin and will admit him to the hospital for IV antibiotics. Vital Signs Temperature 98.2 F 08/22/17 23:28 Pulse Rate 74 08/22/17 23:28 Respiratory Rate 20 08/22/17 23:28 Blood Pressure 134/73 08/22/17 23:28 O2 Sat by Pulse Oximetry 96 08/22/17 23:28 Temperature 98.2 F 08/22/17 23:28 Pulse Rate 69 08/23/17 01:44 Respiratory Rate 20 08/22/17 23:28 Blood Pressure 145/74 08/23/17 01:44 O2 Sat by Pulse Oximetry 96 08/22/17 23:28 Oxygen Delivery Oxygen Delivery Room Air Medical Decision Making - Medical Records Medical records reviewed: Yes I reviewed the patient's medical records. - Lab Data Lab results reviewed: Yes I reviewed the patient's lab results. Result diagrams: 08/23/17 01:33 08/23/17 01:33 Lab Results 08/23/17 08/23/17 08/23/17 Range/Units 01:33 01:33 01:33 WBC 14.6 H (4.3-11.1) K/mcL RBC 4.50 (4.19-5.50) M/mcL Hgb 13.4 (12.9-16.9) g/dL Hct 41.1 (37.5-50.1) % MCV 91.3 (83.0-100.0) fL MCH 29.8 (28.0-33.3) pg MCHC 32.6 (31.6-35.5) g/dL RDW 14.8 H (11.5-14.5) % Plt Count 268 (140-400) K/mcL MPV 9.5 (9.4-12.4) fL Immature Gran % 0.4 (0-4) % Seg Neutrophils % 87.3 % Lymphocytes % 8.1 % Monocytes % 3.7 % Eosinophils % 0.2 % Basophils % 0.3 % Neutrophils # 12.8 H (1.6-8.9) K/mcL Lymphocytes # 1.2 (0.6-4.6) K/mcL Monocytes # 0.5 (0.0-1.3) K/mcL Eosinophils # 0.0 (0.0-0.6) K/mcL Basophils # 0.0 (0.0-0.2) K/mcL Sodium 135 L (136-145) mEq/L Potassium 4.2 (3.5-4.5) mEq/L Chloride 102 (98-109) mEq/L Carbon Dioxide 24 (19-29) mEq/L BUN 33 H (8-26) mg/dL Creatinine 1.74 H (0.72-1.25) mg/dL Est GFR ( Amer) 49 L (> 60) Est GFR (Non-Af Amer) 41 L (> 60) BUN/Creatinine Ratio 19 (6-26) Glucose 147 H (70-99) mg/dL Calculated Osmolality 290 (280-300) Lactic Acid 1.3 (0.5-2.2) mmol/L Calcium 9.1 (8.6-10.8) mg/dL Attestation Statement - Attestation Attestation: I, Juan Rolle MD, personally evaluated this patient and discussed their management with the resident physician. I reviewed the resident's note and agree with the documented findings, medical decision making, and plan of care. 57-year-old male presents to the emergency department complaining of tightness of his pannus which is recurrent problem. He has had it several times in the past. He has been admitted for IV antibiotics. He states he has tried oral antibiotics before but it just got worse and he had to come back and get admitted. He has had a fever for the past day or 2. No generalized abdominal pain. On examination patient is a morbidly obese male in no acute distress. He is alert and oriented 3. There is no cyanosis or diaphoresis. Breath sounds are clear and equal bilaterally. Heart regular rate and rhythm. Abdomen soft with positive bowel sounds. There is a very large pannus with cellulitis of the right lower anterior abdominal wall. Lab reviewed. Antibiotics initiated. The hospitalist, Dr. Man, was consulted and accepted admission of the patient.
[2017-08-23 01:37] LABS: Basophils % 0.3 %; Eosinophils % 0.2 %; Hematocrit 41.1 % (37.5-50.1); Hemoglobin 13.4 g/dL (12.9-16.9); Immature Granulocytes % 0.4 % (0-4); Lymphocytes # 1.2 K/mcL (0.6-4.6); Lymphocytes % 8.1 %; Mean Corpuscular HGB Conc 32.6 g/dL (31.6-35.5); Mean Corpuscular Hemoglobin 29.8 pg (28.0-33.3); Mean Corpuscular Volume 91.3 fL (83.0-100.0); Mean Platelet Volume 9.5 fL (9.4-12.4); Monocytes # 0.5 K/mcL (0.0-1.3); Monocytes % 3.7 %; Neutrophils # 12.8 K/mcL (1.6-8.9); Platelet Count 268 K/mcL (140-400); Red Cell Distribution Width 14.8 % (11.5-14.5); Segmented Neutrophils % 87.3 %
[2017-08-23 01:51] LABS: Calcium 9.1 mg/dL (8.6-10.8); Potassium 4.2 mEq/L (3.5-4.5)
--- NOTE | 2017-08-23 04:26 | Internal Med History&Physical ---
Date of Encounter: 08/23/17 Time of Encounter: 04:00 Assessment and Plan (1) Cellulitis, abdominal wall Current visit: Yes Status: Acute -Patient with recurrent abdominal pannus cellulitis -Fever and leukocytosis due to the above -Continue IV vancomycin (2) Hypertension Current visit: No Status: Acute -Controlled; continue home medications. Qualifiers: Hypertension type: essential hypertension Qualified Code(s): I10 - Essential (primary) hypertension (3) Diabetes Current visit: No Status: Chronic -Controlled; continue home medications. Qualifiers: Diabetes mellitus type: type 2 Diabetes mellitus complication status: without complication Diabetes mellitus fdc insulin use: without fdc use Qualified Code(s): E11.9 - Type 2 diabetes mellitus without complications (4) Anxiety Current visit: No Status: Chronic -Controlled; continue home medications. (5) Paroxysmal atrial fibrillation Current visit: No Status: Chronic -Rate controlled; continue home dose of cardizem and anticoagulation with Xarelto (6) Morbid obesity with BMI of 50.0-59.9, adult Current visit: No Status: Chronic -Lifestyle modifications. (7) DVT prophylaxis Current visit: Yes Status: Acute -Continue home dose of Xarelto Internal Medicine - H&P: HPI Chief complaint: Abdominal cellulitis/fever Admitted From: Home Plans for Post Hospital Care: Home History of present illness: Patient is a 57-year-old male with past medical history significant for recurrent abdominal pannus cellulitis, obesity, atrial fibrillation, insulin diabetes type 2 and hypertension, who presents to the ER on 08/23/17 due to recurrence of abdominal cellulitis. Patient reports a long-standing history of abdominal pannus cellulitis for approximately 10 years with requirement of hospitalization approximately once a year. Patient reports of being treated at [facility] for gangrene abdominal cellulitis. Patient states that he became febrile with a temperature of 101 approximately one day prior to admission and noticed that the redness beneath his abdominal pannus had increased and decided to come to the ER for evaluation. In the ER, patient was found to have leukocytosis with a white blood cell count of 14.6 in addition to acute on chronic stage III kidney disease. Patient will be admitted to the medical floor for treatment of abdominal pannus cellulitis in addition to acute on chronic stage III kidney disease. Past Med Surg Social Fam HX - Past Medical History Medical history: atrial fibrillation, coronary artery disease, diabetes, hyperlipidemia, hypertension, myocardial infarction, other Psychiatric history: anxiety, panic disorder - Past Surgical History Surgical History: other - Social History Smoking Status: Former smoker Smokeless Tobacco Status: No Alcohol use: rarely Drug use: none - Family History Father Adopted: No Family Member Ethnicity: Non- Living Status: Hx Family Cardiac Disorders: Yes Hx Family Respiratory Disorders: Yes Hx Family Cancer: Yes Hx Family GI Disorders: No Hx Family Endocrine Disorder: Yes Hx Family Neuromuscular Disorders: No Hx Family Neurologic Disorders: Yes Hx Family HEENT Disorders: No Hx Family Autoimmune Disorders: No Internal Medicine - H&P: Meds Potassium Chloride 10 meq PO BID 05/18/15 [History] CloNIDine HCl 0.2 mg PO BID #14 tablet 05/20/15 [Rx] Alprazolam [Xanax] 0.5 mg PO TID PRN 08/18/15 [History] Aspirin Enteric Coated [Aspirin EC] 81 mg PO QAM 08/18/15 [History] Linagliptin [Tradjenta] 5 mg PO DAILY 01/08/17 [History] Hydralazine HCl 50 mg PO TID 03/26/17 [History] Metoprolol XL (24 HR) Succ [Toprol Xl] 25 mg PO DAILY 03/26/17 [History] Spironolactone [Aldactone] 100 mg PO DAILY 03/26/17 [History] ALPRAZolam [Xanax 0.5 MG Tablet] 0.5 mg PO TID PRN #20 tablet NS 03/29/17 [Rx] Magnesium Oxide [Mag-Ox] 400 mg PO DAILY #60 tablet 03/29/17 [Rx] Rivaroxaban [Xarelto] 20 mg PO QAM #30 tablet 03/29/17 [Rx] Vancomycin/0.9 % Sod Chloride [Vancomycin-0.9% NaCl 2 G/250] 2 gm IV Q12HR 11 Days plast..bag 03/29/17 [Rx] 3 Allergy/AdvReac Type Severity Reaction Status Date / Time codeine Allergy Difficulty Verified 08/22/17 23:32 [From Tylenol-Codeine #3] Breathing All Systems PM: A 10-system review of systems was performed and is negative for pertinent findings except as documented above in the HPI. - Constitutional Vitals: Temp Pulse Resp BP Pulse Ox 98.2 F 69 20 145/74 96 08/22/17 23:28 08/23/17 01:44 08/22/17 23:28 08/23/17 01:44 08/22/17 23:28 General appearance: Present: A&O X 3, no acute distress, obese - Head Head exam: Present: normocephalic - Eye Eye exam: Present: EOMI, normal appearance - ENT ENT exam: Present: mucous membranes moist - Respiratory Respiratory exam: Present: CTAB. Absent: accessory muscle use, rales, rhonchi, wheezes - Cardiovascular Cardiovascular exam: Present: RRR, +S1, +S2. Absent: diastolic murmur, gallop, rubs, systolic murmur - GI/Abdominal Additional comments: Obese - Neurological Exam Neurological exam: Present: CN II-XII intact, oriented X3, no focal deficits - Psychiatric Psychiatric exam: Present: normal mood - Skin Skin exam: Present: erythema Additional comments: Lower abdominal pannus cellulitis which is warm to touch Internal Med - H&P Results - Labs CBC & Chem 7: 08/23/17 01:33 08/23/17 01:33
[2017-08-23] MEDS ORDERED: Acetaminophen 325 MG TABLET PO PRN (04:37)
[2017-08-23] MEDS ORDERED: 0.9 % Sodium Chloride 1,000 ML IVC SCH (04:45)
[2017-08-23] MEDS ORDERED: Vancomycin 2,000 MG in D5% in Water 250 ML IVPB SCH (05:00)
[2017-08-23 06:34] LABS: Basophils % 0.3 %; Eosinophils # 0.1 K/mcL (0.0-0.6); Eosinophils % 0.5 %; Hemoglobin 12.9 g/dL (12.9-16.9); Immature Granulocytes % 0.4 % (0-4); Lymphocytes # 0.8 K/mcL (0.6-4.6); Lymphocytes % 6.8 %; Mean Corpuscular HGB Conc 32.3 g/dL (31.6-35.5); Mean Corpuscular Hemoglobin 29.6 pg (28.0-33.3); Mean Corpuscular Volume 91.7 fL (83.0-100.0); Mean Platelet Volume 9.4 fL (9.4-12.4); Monocytes # 0.4 K/mcL (0.0-1.3); Monocytes % 3.9 %; Platelet Count 239 K/mcL (140-400); Red Blood Count 4.36 M/mcL (4.19-5.50); Red Cell Distribution Width 14.7 % (11.5-14.5); Segmented Neutrophils % 88.1 %
[2017-08-23 06:46] LABS: Calcium 8.8 mg/dL (8.6-10.8); Potassium 4.1 mEq/L (3.5-4.5)
[2017-08-23] MEDS ORDERED: D5% in Water 1,000 ML IVC PRN (08:50)
[2017-08-23] MEDS ORDERED: *HR* Dextrose 50 % in Water (Syg) 50 ML SYRINGE IVP PRN (08:50)
[2017-08-23] MEDS ORDERED: Dextrose Gel 15 GM PO PRN ×2 (08:50)
[2017-08-23 09:44] LABS: Hemoglobin A1C 6.4 %
[2017-08-23] MEDS: Insulin LISPRO 300 UNITS/3 ML VIAL SQ SCH ×3 (13:13→21:15)
--- NOTE | 2017-08-23 14:56 | Emergency Department Note ---
START Narrative - START START: Asked to evaluate the patient due to bleeding from his leg after striking it against a wheelchair. Upon arrival into the room he is noted to be in his wheelchair with a small pool of blood by the bed. Reports he is on xarelto. He has significant lower extremity edema. There is a noted abrasion to the posterior aspect of the left calf with a nonpulsatile bleed. 4 x 4 pressure dressing as well as AVD applied and wrapped with Kerlix. Patient being transferred to the floor. Instructed to elevate the leg upon arrival.
[2017-08-23] MEDS: Vancomycin 2,000 MG in D5% in Water 500 ML IVPB SCH (16:11)
[2017-08-23 20:22] LABS: Magnesium 1.6 mg/dL (1.6-2.6); Potassium 4.1 mEq/L (3.5-4.5)
[2017-08-23] MEDS: ALPRAZolam 1 MG TABLET PO PRN (21:14)
[2017-08-24] MEDS: Vancomycin 2,000 MG in D5% in Water 500 ML IVPB SCH (02:51)
[2017-08-24] MEDS: Metoprolol XL (24 HR) Succ 25 MG TAB.ER.24H PO SCH ×2 (04:59→08:16)
[2017-08-24] MEDS: hydrALAZINE 25 MG TABLET PO SCH ×4 (05:00→21:29)
[2017-08-24] MEDS: cloNIDine HCl 0.1 MG TABLET PO SCH ×4 (05:00→21:28)
[2017-08-24] MEDS: ALPRAZolam 1 MG TABLET PO PRN ×3 (05:08→21:28)
[2017-08-24 06:50] LABS: Hematocrit 37.7 % (37.5-50.1); Hemoglobin 12.2 g/dL (12.9-16.9); Mean Corpuscular HGB Conc 32.4 g/dL (31.6-35.5); Mean Corpuscular Hemoglobin 29.6 pg (28.0-33.3); Mean Corpuscular Volume 91.5 fL (83.0-100.0); Mean Platelet Volume 10.2 fL (9.4-12.4); Platelet Count 256 K/mcL (140-400); Red Blood Count 4.12 M/mcL (4.19-5.50); Red Cell Distribution Width 14.6 % (11.5-14.5)
[2017-08-24 07:04] LABS: Calcium 8.4 mg/dL (8.6-10.8); Potassium 4.4 mEq/L (3.5-4.5)
[2017-08-24] MEDS: *HR* Rivaroxaban 10 MG TABLET PO SCH (08:33)
[2017-08-24] MEDS: Insulin LISPRO 300 UNITS/3 ML VIAL SQ SCH ×4 (08:34→21:29)
[2017-08-24] MEDS ORDERED: Metoprolol XL (24 HR) Succ 25 MG TAB.ER.24H PO SCH (09:00)
--- NOTE | 2017-08-24 14:45 | Internal Med Progress Note ---
Date of Encounter: 08/24/17 Time of Encounter: 12:00 - Assessment and plan (1) Cellulitis, abdominal wall Current Visit: Yes Status: Acute Assessment and plan: Car Lucero is a 57-year-old male with past medical history morbid obesity, diabetes, hypertension, anxiety and recurrent cellulitis who presented to [facility] on 08/24/2017 with concerns of cellulitis. He was placed in observation as for further workup and treatment. 1. Abdominal wall nonpurulent cellulitis: hx recurrent abdominal pannus cellulitis. Reported subjective fevers at home. WBC 12K, lactic acid normal. No drainage to culture. Likely improved on 08/25. Continue IV Vanco. Descalate to oral on 08/26 it continues to improve 2. Acute on chronic kidney disease: Has known stage III CKD. Follows with nephrology. Likely prerenal with poor PO intake. Cont IV fluids. Avoid nephrotoxic agents as possible. repeat renal function. 3. Uncontrolled HTN: With SBP's up to 190s. Suspect anxiety contributing. Continue home BP medication. Monitor BP and titrate PRN 4. Diabetes: Per history. Hgb A1c 6.4%. Holding home oral hypoglycemics. SSI. Monitor blood sugar and titrate PRN 5. Paroxysmal atrial fibrillation: per hx. Rate controlled. Cont home BB, Xarelto 6. Anxiety: Apparent on exam. Continue home Xanax. 7. 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 Patient is new to me, information obtained from chart review and patient report. Patient says he feels better and feels like he can go home. Says cellulitis is mild this time. He does have some pain to her left lower extremity secondary to trauma from wheelchair yesterday. No chest pain, no shortness of breath. Says he is in the process of bariatric surgery with [facility] - Constitutional Vitals: Temp Pulse Resp BP Pulse Ox 98.1 F 102 16 191/95 96 08/24/17 11:26 08/24/17 11:26 08/24/17 11:26 08/24/17 11:26 08/24/17 11:26 General appearance: Present: A&O X 3, no acute distress, obese - Head Head exam: Present: atraumatic, normocephalic - Eye Eye exam: Present: PERRL, conjuntiva pink, sclera anicteric Pupils: Present: PERRL - Neck Neck exam general surgery: Present: supple, trachea midline. Absent: lymphadenopathy - Respiratory Respiratory exam: Present: CTAB. Absent: accessory muscle use, rales, rhonchi, wheezes - Cardiovascular Cardiovascular exam: Present: RRR, +S1, +S2. Absent: diastolic murmur, gallop, rubs, systolic murmur - GI/Abdominal GI/Abdominal exam: Present: normal bowel sounds, soft, no peritoneal signs. Absent: distended, tenderness Additional comments: ABD pannus wild erythema - Extremities Exam Extremities exam: Present: pedal edema, warm, radial pulses palpable and symmetrical. Absent: calf tenderness, cyanotic Additional comments: hard, pitting edema - Neurological Exam Neurological exam: Present: CN II-XII intact, oriented X3, no focal deficits. Absent: pronater drift, facial droop, speech deficit - Skin Skin exam: Present: dry, intact Internal Medicine: Result - Labs CBC & Chem 7: 08/24/17 06:04 08/24/17 06:04 Labs: Short CBC 08/24/17 Range/Units 06:04 WBC 8.8 (4.3-11.1) K/mcL Hgb 12.2 L (12.9-16.9) g/dL Hct 37.7 (37.5-50.1) % Plt Count 256 (140-400) K/mcL BMP 08/23/17 08/24/17 20:04 06:04 Sodium 134 L Potassium 4.1 4.4 Chloride 101 Carbon Dioxide 23 BUN 31 H Creatinine 1.67 H Glucose 191 H Calcium 8.4 L Consult Discharge Plan - Plan Referrals: NONE,PCP [Primary Care Provider] -
[2017-08-24] MEDS: 0.9 % Sodium Chloride 1,000 ML IVC SCH (17:58)
--- NOTE | 2017-08-24 18:13 | Electrocardiograph Report ---
[address] [address] Test Date: 2017-08-23 Pat Name: Car Lucero Department: 114 Room: [facility] Gender: M Assessment Consultant: [id number] : 1960 Requested By: Giuseppe Man Order Number: [id number] Reading MD: Sai Lemus MD Measurements Intervals [place] Rate: 84 P: CA: 0 QRS: -19 QRSD: 138 T: 87 QT: 373 QTc: 414 Interpretive Statements ATRIAL FIBRILLATION WITH ABERRANT CONDUCTION OR VENTRICULAR PREMATURE COMPLEXES INTRAVENTRICULAR CONDUCTION DELAY Electronically Signed On 08-24-2017 18:12:25 EST by Sai Lemus MD
[2017-08-25 05:33] LABS: Hematocrit 38.6 % (37.5-50.1); Hemoglobin 12.5 g/dL (12.9-16.9); Mean Corpuscular HGB Conc 32.4 g/dL (31.6-35.5); Mean Corpuscular Hemoglobin 29.8 pg (28.0-33.3); Mean Corpuscular Volume 91.9 fL (83.0-100.0); Mean Platelet Volume 10.2 fL (9.4-12.4); Platelet Count 273 K/mcL (140-400); Red Cell Distribution Width 14.6 % (11.5-14.5)
[2017-08-25 05:48] LABS: Calcium 8.8 mg/dL (8.6-10.8); Potassium 4.4 mEq/L (3.5-4.5)
[2017-08-25] MEDS: Insulin LISPRO 300 UNITS/3 ML VIAL SQ SCH ×4 (08:35→21:51)
[2017-08-25] MEDS: Metoprolol XL (24 HR) Succ 25 MG TAB.ER.24H PO SCH (08:36)
[2017-08-25] MEDS: cloNIDine HCl 0.1 MG TABLET PO SCH ×3 (08:36→20:53)
[2017-08-25] MEDS: hydrALAZINE 25 MG TABLET PO SCH ×3 (08:36→20:53)
[2017-08-25] MEDS: *HR* Rivaroxaban 10 MG TABLET PO SCH (08:36)
--- NOTE | 2017-08-25 09:32 | Nephrology Consult Note ---
Date of Encounter: 08/25/17 Time of Encounter: 09:30 Assessment and Plan (1) ALKA (acute kidney injury) Current Visit: Yes Status: Acute ALKA on CKD stage III; ALKA is worsening. I suspect the etiology for the ALKA is as follows: sudden drop of his BPs (inducing reduced renal perfusion) and simultaneously the pt was vanco toxic with a trough >20. His SCr is now worsening. So I do recommend delaying discharge d/t the worsening renal function. He would be a very high risk of potential ATN and renal failure. In the meantime, avoid Vanco if able, and avoid other nephrotoxins as able. Will have to monitor his SCr daily and delay discharge until at least he stabilizes renal function. Will provide very gentle IVF for 24hr to attempt to help improve his renal functio, but I described to him that there are risks of worsening his chronic edema. Of note, he does have mild hyponatremia at 134, which I suspect his hypervolemic hyponatremia. Nevertheless, will check hyponatremia work up. (2) CKD (chronic kidney disease), stage III Current Visit: Yes Status: Chronic CKD stage III at baseline. Follows with me in the clinic. (3) Hypertension Current Visit: No Status: Chronic Chronic, typically uncontrolled d/t obesity, dietary and periodic Rx noncompliance Qualifiers: Hypertension type: essential hypertension Qualified Code(s): I10 - Essential (primary) hypertension (4) Obesity (BMI 35.0-39.9 without comorbidity) Current Visit: No Status: Chronic Chronic, pre-existing. I have previously counseled him on wt in prior office visit appt's (5) Anxiety Current Visit: No Status: Chronic (6) Accelerated hypertension Current Visit: No Status: Chronic See above (7) Hyponatremia Current Visit: Yes Status: Acute See above History of Present Illness - Reason for Consult Consult date: 08/25/17 Acute Kidney Injury, Chronic Kidney Disease, accelerated hypertension Requesting physician: Anisha Moreno - Chief Complaint ALKA on CKD stage III with uncontrolled HTN - History of Present Illness Car Lucero is a very pleasant 57 y/o morbidly obese male with a pertinent pmh of CKD stage III, chronic HTN, hx of cellulitis, anxiety and et al who presented with recurrent cellulitis. Over the last few days, his SCr has steadily worsened, and Nephrology was consulted. He reported feeling okay, but related that he lost IV access overnight. The PICC team was in the room placing a midarm PIV in the RUE during my interview/exam. Of note, he had been referred to me and was seen for uncontrolled HTN in my office. He often had anxiety issues, and noncompliance with Rx contributing to his HTN. He told me today that he missed his last appt and never rescheduled since he happend to have been admitted at [facility] and then was undergoing inpt rehab. He said that he has had cellulitis of his pannus in the past. His symptoms started worsening several days before admission: and there was no known palliative/provokative factors, util he was placed on Abx. He received vancomyocin and of note his Vanco trough level was found to be elevated. His BPs were elevated upon presentation but within about 24hr of admission, there was a documented relative hypotensive episode. He did not affirm recent use of NSAIDs. No active N/V/D or CP. Past Med Surg Social Fam HX - Past Medical History Medical history: atrial fibrillation, coronary artery disease, diabetes, hyperlipidemia, hypertension, myocardial infarction, other Psychiatric history: anxiety, panic disorder - Past Surgical History Surgical History: other - Social History Smoking Status: Former smoker Smokeless Tobacco Status: No Alcohol use: none Drug use: none - Family History Father Adopted: No Family Member Ethnicity: Non- Living Status: Hx Family Cardiac Disorders: Yes Hx Family Respiratory Disorders: Yes Hx Family Cancer: Yes Hx Family GI Disorders: No Hx Family Endocrine Disorder: Yes Hx Family Neuromuscular Disorders: No Hx Family Neurologic Disorders: Yes Hx Family HEENT Disorders: No Hx Family Autoimmune Disorders: No Medications and Allergies Potassium Chloride 10 meq PO BID 05/18/15 [History] Alprazolam [Xanax] 0.5 mg PO TID PRN 08/18/15 [History] Aspirin Enteric Coated [Aspirin EC] 81 mg PO QAM 08/18/15 [History] Linagliptin [Tradjenta] 5 mg PO DAILY 01/08/17 [History] Hydralazine HCl 50 mg PO TID 03/26/17 [History] Metoprolol XL (24 HR) Succ [Toprol Xl] 25 mg PO DAILY 03/26/17 [History] Spironolactone [Aldactone] 100 mg PO DAILY 03/26/17 [History] Rivaroxaban [Xarelto] 20 mg PO QAM #30 tablet 03/29/17 [Rx] CloNIDine HCl 0.2 mg PO TID 08/23/17 [History] 3 Allergy/AdvReac Type Severity Reaction Status Date / Time codeine Allergy Difficulty Verified 08/22/17 23:32 [From Tylenol-Codeine #3] Breathing Review of Systems All Systems: reviewed and no additional remarkable complaints except as stated Constitutional: lethargy Nose, mouth and throat: dry mouth Cardiovascular: edema, pedal edema, no chest pain Respiratory: no cough, no excessive phlegm production Gastrointestinal: abdominal pain (from the pannus cellulitis), no nausea, no vomiting Genitourinary Male: no dysuria, no hematuria Musculoskeletal: joint swelling Integumentary: changing lesions, dry skin, rash, swelling, wounds Neurological: no confusion, no memory loss Psychiatric: anxiety, depression, no confusion Endocrine: fatigue Hematologic/Lymphatic: no easy bruising Allergic/Immunologic: no tongue swelling, no wheezing Exam - Vital Signs Vital signs: Initial Vital Signs Temp Pulse Resp BP Pulse Ox 98.2 F 74 20 134/73 96 08/22/17 23:28 08/22/17 23:28 08/22/17 23:28 08/22/17 23:28 08/22/17 23:28 Vital Signs - Last 8 Hours Temp Pulse Resp BP Pulse Ox 08/25/17 07:28 65 16 172/81 98 08/25/17 06:41 97.9 F 68 16 147/73 96 08/25/17 03:40 97.7 F 65 17 151/65 98 Intake and Output 08/24/17 08/25/17 08/25/17 23:59 07:59 15:59 Intake Total 720 / 720 Output Total 600 / 600 350 / 350 Balance 120 / 120 -350 / -350 Intake: Oral 720 / 720 Output: Urine 600 / 600 350 / 350 Other: Meal Dinner Percent of Meal Consumed 75% Blood Glucose* 142 162 - General Appearance General appearance: well-developed, well-nourished, appears started age, obese, chronically ill, fatigue EENT: ATNC, PERRL, mucous membranes moist Neck: supple Respiratory: clear Cardiology: edema (3+ pedal and 2+ pitting edema bilaterally upto abd including pannus), regular rate, regular rhythm, normal S1, normal S2 Gastrointestinal: normoactive bowel sounds, no tenderness, no guarding Integumentary: rash, erythema, chronic venous stasis Neurologic: no asterixis, alert and oriented x3 Musculoskeletal: erythema, no clubbing Psychiatric: depressed, cooperative Results - Lab Results 08/25/17 04:59 08/25/17 04:59 Most recent lab results Calcium 8.8 mg/dL (8.6-10.8) 08/25/17 04:59 Magnesium 1.6 mg/dL (1.6-2.6) 08/23/17 20:04 I reviewed the progress notes in [facility], labs, med lists, vitals, I/Os, imaging Consult Discharge Plan - Plan Referrals: NONE,PCP [Primary Care Provider] -
--- NOTE | 2017-08-25 12:52 | Infectious Disease Consult ---
Date of Encounter: 08/25/17 Time of Encounter: 12:48 Assessment and Plan (1) Leukocytosis Status: Acute Assessment and plan: Likely secondary to abdominal wall cellulitis. Improved. Continue to trend. Qualifiers: Leukocytosis type: unspecified Qualified Code(s): D72.829 - Elevated white blood cell count, unspecified (2) Cellulitis, abdominal wall Status: Acute Assessment and plan: Location: Underside of pannus. Etiology unclear, but likely secondary to microperforations in the skin from the pendulous abdomen. No open lesions noted on the pannus at this time. Non-purulent. Clinically improved per the patient. The patient does have a new small ulceration to the left groin over the previous I & D scar. Recommend wound care to evaluate. Causative organism unclear, but likely GPC given that the patient has improved on IV Vancomycin. Continue Vancomycin IV. Pharmacy to dose. Goal trough 10-15. VT yesterday 28.1. Vanc currently on hold per pharmacy recommendations. Duration of treatment depends on the clinical picture, but likely 14 days. Given that the patient has improved, will likely be able to switch to oral Doxycycline on discharge. Monitor renal function and for drug toxicity and dose-adjust antibiotics. (3) Acute kidney injury (nontraumatic) Status: Acute Assessment and plan: Likely secondary to vanc toxicity in the setting of CKD. Nephrology consulted. Will need to dose-adjust vanc and will ask pharmacy to assist with this. Continue to trend. Avoid additional nephrotoxins as able. (4) CKD (chronic kidney disease), stage III Status: Chronic (5) Diabetes Status: Chronic Assessment and plan: Controlled. HgbA1C 6.4%. Recommend aggressive glucose monitoring and control to promote healing and prevent re-infection. Management per the primary team. Qualifiers: Diabetes mellitus type: type 2 Diabetes mellitus complication status: without complication Diabetes mellitus medical terminologist insulin use: without care home use Qualified Code(s): E11.9 - Type 2 diabetes mellitus without complications (6) Hyperlipemia Status: Chronic Qualifiers: Hyperlipidemia type: unspecified Qualified Code(s): E78.5 - Hyperlipidemia , unspecified (7) Hypertension Status: Chronic Qualifiers: Hypertension type: essential hypertension Qualified Code(s): I10 - Essential (primary) hypertension (8) Morbid obesity with BMI of 50.0-59.9, adult Status: Chronic Assessment and plan: Follows with bariatric surgery team at [facility]. (9) Paroxysmal atrial fibrillation Status: Chronic (10) Ulcer of left groin Status: Acute Assessment and plan: Stage II ulcer noted. No purulence. Overlying the previous surgical scar, but no wound dehiscence noted. Recommend wound care to evaluate. The patient followed with Dr. Meza in the wound care clinic previously. Qualifiers: Non-pressure ulcer stage: limited to breakdown of skin Qualified Code(s): L98.491 - Non-pressure chronic ulcer of skin of other sites limited to breakdown of skin Infectious Disease HPI - Data of Consult Patient: new to practice Consult date: 08/25/17 Requesting Physician: Kingsley Modi MD Primary Care Provider: PCP NONE - Consult Narrative Reason for consult: abdominal cellulitis History of present illness: Mr. Lucero is a 57 year old male with past medical history of diabetes, A. fib, hypertension, morbid obesity, CAD, hyperlipidemia, hypertension, NV, and recurrent cellulitis of the abdominal wall status post debridement in December 2016. The patient was admitted to the hospital August 23 for acute kidney injury and cellulitis. We are consulted August 25 for antibiotic recommendations regarding abdominal wall cellulitis. The patient's a 57-year-old male with past medical history as stated above. The patient states that he has had recurrent cellulitis of his abdomen at least once a year for the past 10 years. Most recently, the patient was diagnosed with cellulitis back in December and required surgical debridement up at [facility]. He states he had been doing well until the day of admission when he began to spike a fever of 100 and noticed that his abdomen was very tight and red. Upon presentation to the ER, the patient was afebrile and hemodynamically stable. He did have a neutrophilic leukocytosis and acute kidney injury. Lactic acid was normal. Blood cultures were obtained 2 sets are no growth to date. The patient was started on IV vancomycin and admitted to the hospital for further evaluation. Since admission, the patient's white blood cell count has normalized. He had an elevated trough at 28 and his acute kidney injury has worsened. He has been evaluated by nephrology who recommended that the patient stay until his renal function improves. Clinically, the patient reports improvement in his cellulitis. Currently, the patient is on IV vancomycin. We've been asked to evaluate and make further recommendations. During my exam, the patient states that overall he feels better. He denies any fevers or chills or rigor since being admitted. He denies any headache or neck pain. He denies any congestion, earache, or sore throat. He denies any nausea, vomiting, diarrhea, or constipation. He does report general fatigue when he felt like he had a fever. He denies any pain, but states that the abdomen was tight and red. He denies any new ulcers or lesions to the area. He denies any pain in his extremities or back. He states he has been followed with bariatric surgery team at [facility] and would like to undergo bariatric surgery once he gets all of his issues taken care of. The patient lives at home with his . 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 He denies any tobacco, alcohol, or illicit drug use. CC: Kingsley Modi MD Past Med Surg Social Fam HX - Past Medical History Attestation: Yes The following information was validated with the patient. Source: patient, old records reviewed, nursing notes reviewed Medical history: atrial fibrillation, coronary artery disease, diabetes, hyperlipidemia, hypertension, myocardial infarction, other (Panniculitis status post debridement 12/2016) Psychiatric history: anxiety, panic disorder - Past Surgical History Surgical History: other (Surgical debridement of pannus 12/2016, repeat debridement 01/2017) - Social History Smoking Status: Former smoker Smokeless Tobacco Status: No Alcohol use: none Drug use: none Occupational status: retired Current living situation: Home - Independent Activity Level: Independent ambulation Recent Out of Country Travel Within the Last 8 Weeks: No Exposure or Possible Exposure to Illness During Travel: No - Family History Father Adopted: No Family Member Ethnicity: Non- Living Status: Hx Family Cardiac Disorders: Yes Hx Family Respiratory Disorders: Yes Hx Family Cancer: Yes Hx Family GI Disorders: No Hx Family Endocrine Disorder: Yes Hx Family Neuromuscular Disorders: No Hx Family Neurologic Disorders: Yes Hx Family HEENT Disorders: No Hx Family Autoimmune Disorders: No Infectious Disease-CN:Meds Potassium Chloride 10 meq PO BID 05/18/15 [History] Aspirin Enteric Coated [Aspirin EC] 81 mg PO QAM 08/18/15 [History] Linagliptin [Tradjenta] 5 mg PO DAILY 01/08/17 [History] Hydralazine HCl 50 mg PO TID 03/26/17 [History] Metoprolol XL (24 HR) Succ [Toprol Xl] 25 mg PO DAILY 03/26/17 [History] Spironolactone [Aldactone] 100 mg PO DAILY 03/26/17 [History] Rivaroxaban [Xarelto] 20 mg PO QAM #30 tablet 03/29/17 [Rx] CloNIDine HCl 0.2 mg PO TID 08/23/17 [History] ALPRAZolam [Xanax 1 MG Tablet] 0.5 mg PO TID PRN #10 tablet 08/27/17 [Rx] Doxycycline 100 mg PO BID 14 Days #28 capsule 08/27/17 [Rx] 3 Allergy/AdvReac Type Severity Reaction Status Date / Time codeine Allergy Difficulty Verified 08/22/17 23:32 [From Tylenol-Codeine #3] Breathing All systems: reviewed and no additional remarkable complaints except as stated Exam - Constitutional Vitals: Temp Pulse Resp BP Pulse Ox 97.9 F 65 16 172/81 98 08/25/17 06:41 08/25/17 07:28 08/25/17 07:28 08/25/17 07:28 08/25/17 07:28 General appearance: cooperative, morbidly obese, no acute distress - Head Head exam: Present: atraumatic, normal inspection, normocephalic - Eye Eye exam: Present: EOMI, normal appearance, PERRL Pupils: Present: normal accommodation - ENT ENT exam: Present: mucous membranes moist - Neck Neck exam: Present: normal inspection - Respiratory Respiratory exam: Present: CTAB. Absent: rales, respiratory distress, rhonchi, wheezes - Cardiovascular Cardiovascular exam: Present: irregular rhythm. Absent: tachycardia - GI/Abdominal GI/Abdominal exam: Present: distended (morbidly obese), normal bowel sounds, soft. Absent: tenderness Additional comments: Pendulous abdomen with a large pannus. Skin under the pannus is hard, non- tender and not warm to touch. No purulence noted. The patient does have a superficial wound to the left groin that measures approx 1cm x 0.5cm. No purulence noted. Wound bed is 100% granulation tissue and is moist without tenderness or fluctuance. Discoloration of the skin of the pannus noted, but not markedly erythematous. - Extremities Exam Extremities exam: Present: pedal edema (1+ BLE). Absent: joint swelling, tenderness Additional comments: Left LE dressing C/D/I. - Neurological Exam Neurological exam: Present: alert, oriented X3, no focal deficits - Psychiatric Psychiatric exam: Present: normal affect, normal mood - Skin Skin exam: Present: dry, intact, normal color, warm Infectious Disease CN: Results - Labs CBC & Chem 7: 08/27/17 05:20 08/27/17 05:20 Consult Discharge Plan - Plan Additional Instructions: FOLLOW UP WITH PRIMARY DOCTOR. REFERRAL CARD GIVEN FOR PATIENT TO CALL MONDAY TO SCHEDULE APPOINTMENT. Referrals: Joel Savage DO [Partnered Physician] - NONE,PCP [Primary Care Provider] - Prescriptions: ALPRAZolam [Xanax 1 MG Tablet] 0.5 mg PO TID PRN #10 tablet PRN Reason: Anxiety Doxycycline 100 mg PO BID 14 Days #28 capsule
--- NOTE | 2017-08-25 13:28 | Internal Med Progress Note ---
Date of Encounter: 08/25/17 Time of Encounter: 07:45 - Assessment and plan (1) Cellulitis, abdominal wall Current Visit: Yes Status: Acute Assessment and plan: Car Lucero is a 57-year-old male with past medical history morbid obesity, diabetes, hypertension, anxiety and recurrent cellulitis who presented to [facility] on 08/24/2017 with concerns of cellulitis. He was placed in observation as for further workup and treatment. 1. Abdominal wall nonpurulent cellulitis: hx recurrent abdominal pannus cellulitis. Reported subjective fevers at home. WBC 12K, lactic acid normal. No drainage to culture. Continue IV Vanco. Infectious disease consulted 2. Acute on chronic kidney disease: Has known stage III CKD. Follows with nephrology. Pre-renal component with poor PO intake, sudden drop in BP and now with Vanco toxicity. Cont IV fluids. Avoid nephrotoxic agents as possible. Nephrology following. 3. Uncontrolled HTN: With SBP's up to 190s. Suspect anxiety contributing. Continue home BP medication. Monitor BP and titrate PRN 4. Diabetes: Per history. Hgb A1c 6.4%. Holding home oral hypoglycemics. SSI. Monitor blood sugar and titrate PRN 5. Paroxysmal atrial fibrillation: per hx. Rate controlled. Cont home BB, Xarelto 6. Anxiety: Apparent on exam. Continue home Xanax. 7. DVT prophylaxis: Xarelto (2) CKD (chronic kidney disease) stage 3, GFR 30-59 ml/min Current Visit: No Status: Acute (3) Diabetes Current Visit: No Status: Chronic Qualifiers: Diabetes mellitus type: type 2 Diabetes mellitus complication status: without complication Diabetes mellitus skilled nursing insulin use: without skilled nursing use Qualified Code(s): E11.9 - Type 2 diabetes mellitus without complications (4) Morbid obesity with BMI of 60.0-69.9, adult Current Visit: No Status: Chronic - Subjective Interval history: Seen and examined at bedside. Seeing up in chair at bedside. Says he feels better and would like to go home. He says cellulitis is significantly improved. Advised him of worsening renal function and advised him to stay inpatient for nephrology consult. He would like to go home if possible but is agreeable to stay. Denies chest pain, no shortness of breath. No dysuria. Says he has been drinking more water overnight. - Constitutional Vitals: Temp Pulse Resp BP Pulse Ox 97.6 F 65 18 176/79 99 08/25/17 12:14 08/25/17 12:14 08/25/17 12:14 08/25/17 12:14 08/25/17 12:14 General appearance: Present: A&O X 3, no acute distress, obese - Head Head exam: Present: atraumatic, normocephalic - Eye Eye exam: Present: PERRL, conjuntiva pink, sclera anicteric Pupils: Present: PERRL - Neck Neck exam general surgery: Present: supple, trachea midline. Absent: lymphadenopathy - Respiratory Respiratory exam: Present: CTAB. Absent: accessory muscle use, rales, rhonchi, wheezes - Cardiovascular Cardiovascular exam: Present: RRR, +S1, +S2. Absent: diastolic murmur, gallop, rubs, systolic murmur - GI/Abdominal GI/Abdominal exam: Present: normal bowel sounds, soft, no peritoneal signs. Absent: distended, tenderness Additional comments: Obese with pannus - Extremities Exam Extremities exam: Present: pedal edema, warm, radial pulses palpable and symmetrical. Absent: calf tenderness, cyanotic Additional comments: Severe bilateral lower extremity pitting edema - Neurological Exam Neurological exam: Present: CN II-XII intact, oriented X3, no focal deficits. Absent: pronater drift, facial droop, speech deficit - Skin Skin exam: Present: dry, intact Internal Medicine: Result - Labs CBC & Chem 7: 08/25/17 04:59 08/25/17 04:59 Labs: Short CBC 08/25/17 Range/Units 04:59 WBC 8.9 (4.3-11.1) K/mcL Hgb 12.5 L (12.9-16.9) g/dL Hct 38.6 (37.5-50.1) % Plt Count 273 (140-400) K/mcL BMP 08/25/17 04:59 Sodium 134 L Potassium 4.4 Chloride 100 Carbon Dioxide 23 BUN 46 H D Creatinine 2.27 H Glucose 171 H Calcium 8.8 Consult Discharge Plan - Plan Referrals: NONE,PCP [Primary Care Provider] -
[2017-08-25] MEDS: ALPRAZolam 1 MG TABLET PO PRN (15:40)
[2017-08-25] MEDS: 0.9 % Sodium Chloride 1,000 ML IVC SCH (21:00)
[2017-08-26 05:06] LABS: Hematocrit 35.5 % (37.5-50.1); Hemoglobin 11.8 g/dL (12.9-16.9); Immature Platelets 2.8 % (1.1-6.1); Mean Corpuscular HGB Conc 33.2 g/dL (31.6-35.5); Mean Corpuscular Hemoglobin 30.1 pg (28.0-33.3); Mean Corpuscular Volume 90.6 fL (83.0-100.0); Mean Platelet Volume 10.1 fL (9.4-12.4); Red Blood Count 3.92 M/mcL (4.19-5.50); Red Cell Distribution Width 14.1 % (11.5-14.5)
[2017-08-26 05:15] LABS: Calcium 8.6 mg/dL (8.6-10.8); Phosphorous 5.4 mg/dL (2.3-4.7); Potassium 4.5 mEq/L (3.5-4.5)
[2017-08-26 05:36] LABS: Thyroid Stimulating Hormone 1.392 mcIU/mL (0.350-4.840)
[2017-08-26] MEDS ORDERED: Vancomycin 2,000 MG in D5% in Water 500 ML IVPB ONE (06:30)
[2017-08-26 08:26] LABS: Bilirubin,Urine Negative (Negative); Blood,Urine Large (Negative); Clarity,Urine Cloudy (Clear); Color,Urine Yellow (Yellow); Glucose,Urine (UA) Normal (Normal); Ketones,Urine Negative (Negative); Leukocyte Esterase,Urine Moderate (Negative); Nitrite,Urine Negative (Negative); Protein,Urine Negative (Neg-Trace); Specific Gravity,Urine 1.018 (1.010-1.025); Urobilinogen,Urine Normal (Normal)
[2017-08-26 08:28] LABS: Bacteria,Urine None Seen per hpf (None-Few); Hyaline Casts,Urine None Seen per lpf (None-Few); Squamous Epithelial Cell,Urine Moderate per lpf (None-Few); WBC,Urine 15-30 per hpf (0-3)
[2017-08-26 08:51] LABS: RBC,Urine 50-100 per hpf (0-3); Uric Acid Crystals,Urine Present
--- NOTE | 2017-08-26 10:11 | Nephrology Progress Note ---
Date of Encounter: 08/26/17 Time of Encounter: 09:20 - Assessment and Plan (1) ALKA (acute kidney injury) Current Visit: Yes Status: Acute ALKA has started to stabilize with the IVF and I see that the Vanco levels are trending down. I recommend weaning off the IVF today d/t his pre-existing edema and as long as his SCr remains stable if not improved tomorrow, then he should be safer from a Renal perspective for discharge. Meanwhile, continue to follow a renal protective strategy to avoid Nephrotoxins as able such as Vanco and NSAIDs. (2) CKD (chronic kidney disease), stage III Current Visit: Yes Status: Chronic Hx of CKD stage III with baseline eGFR in the 50s. 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 We talked about how he has been interested in Bariatric surgery ; which is reasonable once he stabilizes (5) Anxiety Current Visit: No Status: Chronic Controlled today (6) Accelerated hypertension Current Visit: No Status: Chronic Stable for him. Continue current Rx but avoiding DARLENE or ARB presently d/t the ALKA (7) Hyponatremia Current Visit: Yes Status: Acute No evidence of adrenal or thyroid contribution. Improved actually today. Subjective Principal diagnosis: ALKA on CKD; Cellultitis Interval history: Pt was s/e this AM. He did not report new N/V/D or CP. He has received IVF and did not affirm any new ShOB. He asked about Vanco. He said the hospitalist had already rounded today. He related the events of December and January when he was hospitalized at [facility] and then the 2 month stay at an [facility] this summer. He expressed hope to someday have bariatric surgery. He asked about his left renal stone, and he has been followed as an outpt by Dr. Gay. Objective - Vital Signs Vital signs: Vital Signs Temp Pulse Resp BP Pulse Ox 08/26/17 07:40 98.6 F 67 18 188/77 94 08/26/17 04:03 97.6 F 62 16 123/72 94 08/26/17 03:57 97.9 F 76 15 124/80 95 08/25/17 23:48 97.6 F 68 19 113/71 97 08/25/17 18:55 98.1 F 66 18 126/77 95 08/25/17 16:00 97.8 F 85 16 179/90 97 08/25/17 12:14 97.6 F 65 18 176/79 99 Intake and Output 08/25/17 08/26/17 08/26/17 23:59 07:59 15:59 Intake Total 480 / 480 Output Total 150 / 150 Balance -150 / -150 480 / 480 Intake: Oral 480 / 480 Output: Urine 150 / 150 Other: Meal Breakfast Percent of Meal Consumed 100% Weight 215.91 kg Blood Glucose* 138 147 Patient Weight 08/26/17 23:59 Weight 215.91 kg - General Appearance General appearance: Present: well-developed, well-nourished, appears started age , obese EENT: Present: ATNC, PERRL, mucous membranes moist Neck: Present: supple Respiratory: Present: clear Cardiology: Present: edema, regular rate, regular rhythm, normal S1, normal S2 Gastrointestinal: Present: normoactive bowel sounds, no guarding, obese (with large pannus) Integumentary: Present: erythema, chronic venous stasis Neurologic: Present: no focal deficit, no asterixis, alert and oriented x3 Musculoskeletal: Present: erythema, no clubbing Psychiatric: Present: mood/affect appropriate, cooperative - Lab 08/26/17 04:39 08/26/17 04:39 Most recent lab results Calcium 8.6 mg/dL (8.6-10.8) 08/26/17 04:39 Phosphorus 5.4 mg/dL (2.3-4.7) H 08/26/17 04:39 Magnesium 1.6 mg/dL (1.6-2.6) 08/23/17 20:04 Urine Sodium 84.0 mEq/L 08/26/17 08:19 Consult Discharge Plan - Plan Referrals: NONE,PCP [Primary Care Provider] -
[2017-08-26] MEDS: Metoprolol XL (24 HR) Succ 25 MG TAB.ER.24H PO SCH (10:25)
[2017-08-26] MEDS: *HR* Rivaroxaban 10 MG TABLET PO SCH (10:26)
[2017-08-26] MEDS: hydrALAZINE 25 MG TABLET PO SCH ×3 (10:26→20:31)
[2017-08-26] MEDS: Insulin LISPRO 300 UNITS/3 ML VIAL SQ SCH ×4 (10:26→20:32)
[2017-08-26] MEDS: cloNIDine HCl 0.1 MG TABLET PO SCH ×3 (10:26→20:31)
--- NOTE | 2017-08-26 12:18 | Internal Med Progress Note ---
Date of Encounter: 08/26/17 Time of Encounter: 08:40 - Assessment and plan (1) Cellulitis, abdominal wall Current Visit: Yes Status: Acute Assessment and plan: Acute cellulitis of abdominal wall on the underside of pannus - probably due to microperforations in the skin from pendulous abdomen, no open lesions noted, nonpurulent Patient has been on IV Vancomycin and cellulitis has improved Patient does not want to continue Vancomycin any longer due to ALKA can switch to Doxycycline PO as per ID recommendations - need to continue for a total of 14 days Appreciate ID input Cultures - no growth Cardiac telemetry, lives in a.m., monitor closely (2) CKD (chronic kidney disease) stage 3, GFR 30-59 ml/min Current Visit: Yes Status: Acute Assessment and plan: Acute kidney injury on chronic kidney disease stage III - probably due to reduced renal perfusion, vancomycin toxicity, with high risk for potential ATN Continue IV fluids, labs in a.m. Nephrology consult - appreciate input (3) Paroxysmal atrial fibrillation Current Visit: Yes Status: Chronic Assessment and plan: Probable chronic atrial fibrillation, rate controlled Continue Toprol-XL, Xarelto for anticoagulation (4) Hypertension Current Visit: Yes Status: Chronic Assessment and plan: Essential hypertension, controlled, monitor Continue home dose of Toprol-XL, Aldactone, Clonidine Qualifiers: Hypertension type: essential hypertension Qualified Code(s): I10 - Essential (primary) hypertension (5) Diabetes Current Visit: Yes Status: Chronic Assessment and plan: Type 2 diabetes mellitus, [id number], hyperglycemia Continue sliding scale insulin, glucose checks Qualifiers: Diabetes mellitus type: type 2 Diabetes mellitus complication status: without complication Diabetes mellitus chcf insulin use: without watermaster use Qualified Code(s): E11.9 - Type 2 diabetes mellitus without complications (6) Anxiety Current Visit: Yes Status: Chronic Assessment and plan: Continue Xanax as needed (7) Morbid obesity with BMI of 50.0-59.9, adult Current Visit: Yes Status: Chronic Assessment and plan: Morbid obesity with BMI 59.5 Patient states he will follow-up at [facility] for bariatric surgery (8) DVT prophylaxis Current Visit: Yes Status: Acute Assessment and plan: Continue home dose of Xarelto - Time Spent With Patient 25 - 35 minutes - Subjective Interval history: Examined this morning. Patient is awake and alert. Not in any distress. Sitting up in chair. Tolerating oral diet well. Denies chest pain or shortness of breath. States he is ambulating. Denies abdominal pain. Patient thinks his abdominal wall cellulitis is improving. No other acute complaints. Patient does not want IV Vancomycin because of his acute kidney injury. He would rather switch to oral antibiotics at this time. Patient can be on Doxycycline as per ID recommendations. Vancomycin was on hold as his vanc trough was elevated. - Constitutional Vitals: Temp Pulse Resp BP Pulse Ox 98.6 F 67 18 188/77 94 08/26/17 07:40 08/26/17 07:40 08/26/17 07:40 08/26/17 07:40 08/26/17 07:40 General appearance: Present: cooperative, A&O X 3, morbidly obese, no acute distress, obese, answers questions appropriately - Head Head exam: Present: atraumatic - Eye Eye exam: Present: EOMI - ENT ENT exam: Present: mucous membranes moist - Respiratory Respiratory exam: Present: CTAB. Absent: accessory muscle use, chest wall tenderness, rales, rhonchi, wheezes, tachypnea - Cardiovascular Cardiovascular exam: Present: RRR, +S1, +S2 - GI/Abdominal GI/Abdominal exam: Present: distended (Morbidly obese), no peritoneal signs. Absent: guarding Additional comments: Patient has a pendulous abdomen, obese with pannus, erythema over pannus, likely cellulitis which seems to be improving, edema over pannus - Extremities Exam Extremities exam: Present: pedal edema (Bilateral lower leg 4+ edema), radial pulses palpable and symmetrical. Absent: calf tenderness, cyanotic - Neurological Exam Neurological exam: Present: alert, oriented X3, no focal deficits. Absent: facial droop, speech deficit Internal Medicine: Result - Labs CBC & Chem 7: 08/26/17 04:39 08/26/17 04:39 Labs: Short CBC 08/26/17 Range/Units 04:39 WBC 6.7 (4.3-11.1) K/mcL Hgb 11.8 L (12.9-16.9) g/dL Hct 35.5 L (37.5-50.1) % Plt Count 269 (140-400) K/mcL BMP 08/26/17 04:39 Sodium 136 Potassium 4.5 Chloride 104 Carbon Dioxide 21 BUN 54 H Creatinine 2.06 H Glucose 178 H Calcium 8.6 Urine 08/26/17 Range/Units 08:19 Urine Color Yellow (Yellow) Urine Clarity Cloudy A (Clear) Urine pH 5.0 (5.0-8.0) pH Units Ur Specific [place] 1.018 (1.010-1.025) Urine Protein Negative (Neg-Trace) mg/dL Urine Glucose (UA) Normal (Normal) mg/dL Consult Discharge Plan - Plan Referrals: NONE,PCP [Primary Care Provider] -
[2017-08-26] MEDS ORDERED: Aminoglycoside Consult 1 EACH MC ONE (12:39)
[2017-08-26] MEDS: Doxycycline 100 MG CAPSULE PO SCH ×2 (14:23→20:31)
[2017-08-26] MEDS: ALPRAZolam 1 MG TABLET PO PRN (14:23)
[2017-08-27 04:06] VITALS: BP 138/71
[2017-08-27 05:45] LABS: Hemoglobin 12.2 g/dL (12.9-16.9); Mean Corpuscular Hemoglobin 29.5 pg (28.0-33.3); Mean Corpuscular Volume 89.6 fL (83.0-100.0); Mean Platelet Volume 9.9 fL (9.4-12.4); Platelet Count 278 K/mcL (140-400); Red Blood Count 4.13 M/mcL (4.19-5.50)
[2017-08-27 06:01] LABS: Potassium 4.7 mEq/L (3.5-4.5)
[2017-08-27 06:02] LABS: Calcium 8.8 mg/dL (8.6-10.8)
[2017-08-27] MEDS: Metoprolol XL (24 HR) Succ 25 MG TAB.ER.24H PO SCH (08:07)
[2017-08-27] MEDS: hydrALAZINE 25 MG TABLET PO SCH (08:07)
[2017-08-27] MEDS: Doxycycline 100 MG CAPSULE PO SCH (08:07)
[2017-08-27] MEDS: *HR* Rivaroxaban 10 MG TABLET PO SCH (08:07)
[2017-08-27] MEDS: ALPRAZolam 1 MG TABLET PO PRN (08:10)
[2017-08-27] MEDS: cloNIDine HCl 0.1 MG TABLET PO SCH (08:10)
[2017-08-27] MEDS: Insulin LISPRO 300 UNITS/3 ML VIAL SQ SCH (08:53)
[2017-08-27] MEDS ORDERED: FLUARIX QUAD 2017-18 36MOS UP/PF 0.5 ML SYRINGE IM ONE (10:57)
--- NOTE | 2017-08-27 11:13 | Discharge Summary ---
Date of Encounter: 08/27/17 Time of Encounter: 10:25 - Discharge Diagnosis (1) Cellulitis, abdominal wall Priority: Primary Status: Acute Comments: Acute cellulitis of abdominal wall on the underside of pannus - probably due to microperforations in the skin from pendulous abdomen, no open lesions noted, nonpurulent - now improved Patient has been on IV Vancomycin and cellulitis has improved Continue Doxycycline PO as per ID recommendations - need to continue for a total of 14 days Appreciate ID input Cultures - no growth Follow-up with primary care physician, return if symptoms worsen (2) CKD (chronic kidney disease) stage 3, GFR 30-59 ml/min Priority: Primary Status: Acute Comments: Acute kidney injury on chronic kidney disease stage III - probably due to reduced renal perfusion, vancomycin toxicity, with high risk for potential ATN Now improved, back to baseline Nephrology consult - appreciate input Follow-up with nephrology as outpatient (3) Paroxysmal atrial fibrillation Priority: Primary Status: Chronic Comments: Probable chronic atrial fibrillation, rate controlled Continue Toprol-XL, Xarelto for anticoagulation (4) Hypertension Priority: Primary Status: Chronic Comments: Essential hypertension, controlled, monitor Continue home dose of Toprol-XL, Aldactone, Clonidine Qualifiers: Hypertension type: essential hypertension Qualified Code(s): I10 - Essential (primary) hypertension (5) Diabetes Priority: Primary Status: Chronic Comments: Type 2 diabetes mellitus, [id number], hyperglycemia Continue home dose of Linagliptin Qualifiers: Diabetes mellitus type: type 2 Diabetes mellitus complication status: without complication 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 insulin use: without halfway use Qualified Code(s): E11.9 - Type 2 diabetes mellitus without complications (6) Anxiety Priority: Primary Status: Chronic Comments: Continue Xanax as needed (7) Morbid obesity with BMI of 50.0-59.9, adult Priority: Primary Status: Chronic Comments: Morbid obesity with BMI 59.5 Patient states he will follow-up at [facility] for bariatric surgery (8) DVT prophylaxis Priority: Primary Status: Acute Comments: Continue home dose of Xarelto - Discharge Medications Prescriptions: ALPRAZolam [Xanax 1 MG Tablet] 0.5 mg PO TID PRN #10 tablet PRN Reason: Anxiety Doxycycline 100 mg PO BID 14 Days #28 capsule Home Medications: Potassium Chloride 10 meq PO BID 05/18/15 [History] Aspirin Enteric Coated [Aspirin EC] 81 mg PO QAM 08/18/15 [History] Linagliptin [Tradjenta] 5 mg PO DAILY 01/08/17 [History] Hydralazine HCl 50 mg PO TID 03/26/17 [History] Metoprolol XL (24 HR) Succ [Toprol Xl] 25 mg PO DAILY 03/26/17 [History] Spironolactone [Aldactone] 100 mg PO DAILY 03/26/17 [History] Rivaroxaban [Xarelto] 20 mg PO QAM #30 tablet 03/29/17 [Rx] CloNIDine HCl 0.2 mg PO TID 08/23/17 [History] ALPRAZolam [Xanax 1 MG Tablet] 0.5 mg PO TID PRN #10 tablet 08/27/17 [Rx] Doxycycline 100 mg PO BID 14 Days #28 capsule 08/27/17 [Rx] Allergies/Adverse Reactions: 3 Allergy/AdvReac Type Severity Reaction Status Date / Time codeine Allergy Difficulty Verified 08/22/17 23:32 [From Tylenol-Codeine #3] Breathing Date of admission: 08/23/17 03:57 Primary care physician: PCP NONE Consults: 08/23/17 19:42 Consult to Wound Care [CONS] Routine Reason for Consult: left calf laceration and left abdomen breakdown Call Completed: Yes 08/25/17 09:16 Consult to Nephrology [CONS] Routine Consulting Provider: [facility] [place]/LIANA/KALPESH/NICHOL Reason for Consult: Worsening renal fx Call Completed: Yes 08/25/17 09:22 Consult to Infectious Diseases [CONS] Routine Consulting Provider: [facility] [place] Reason for Consult: Recurrent pannus cellulitis Call Completed: Yes Anticipated date of discharge: 08/27/17 - Patient Status Disposition: Home, Self-Care Condition: Good Functional capacity at discharge: independent ambulation Overall status at discharge: patient is progressing back to baseline - Discharge Instructions Follow Up With: NONE,PCP [Primary Care Provider] - Joel Savage DO [Partnered Physician] - Additional Instructions: FOLLOW UP WITH PRIMARY DOCTOR. REFERRAL CARD GIVEN FOR PATIENT TO CALL MONDAY TO SCHEDULE APPOINTMENT. - Diet and Activity Activity: increase activity as tolerated, resume usual activities as tolerated Diet: diabetic diet, low fat, low cholesterol Hospital course: Mr. Lucero is a 57 year old male with past medical history of atrial fibrillation , coronary artery disease, diabetes, hyperlipidemia, hypertension, anxiety and chronic kidney disease. He presented to the ED with complaints of abdominal wall cellulitis and fever. Patient does have recurrent abdominal pannus cellulitis. He is morbidly obese and does have a pendulous abdomen. Patient was started on IV vancomycin. He did not have any drainage so no culture was obtained. Patient did have acute kidney injury on chronic disease probably due to vancomycin use. He was on IV fluids. His creatinine seems to be back to baseline at this time. ID has evaluated the patient and recommended to switch to doxycycline by mouth on discharge. Nephrology has also evaluated patient and advice to avoid nephrotoxins. I will fluids were slowly weaned off. Patient is now back to baseline. His cellulitis has improved. He is tolerating oral diet well and ambulating well. No other acute events or complications during his stay in the hospital. He was continued on all his home medications and he tolerated all meds well. Patient states he will follow- up with a history of bariatric surgery. Abdominal wall cellulitis likely due to microperforations and skin from pendulous abdomen. No open lesions were noted. Patient is being discharged on doxycycline by mouth. His cellulitis has improved. He has been explained about his condition and plan of care in detail. He understood and agreed. No nits questions. He has been advised to continue his anticoagulation with Xarelto. Advised return if symptoms worsen. Follow up with primary care physician and nephrology as outpatient. Patient is being discharged in stable condition. - Time Spent with Patient Total time spent providing and/or coordinating discharge services: Less than 30 minutes - Constitutional Vitals: Temp Pulse Resp BP Pulse Ox 98.2 F 60 19 138/71 100 08/27/17 04:05 08/27/17 04:05 08/27/17 04:05 08/27/17 04:05 08/27/17 04:05 General appearance: Present: cooperative, A&O X 3, morbidly obese, no acute distress, obese, answers questions appropriately - Head Head exam: Present: atraumatic - Eye Eye exam: Present: EOMI - ENT ENT exam: Present: mucous membranes moist - Respiratory Respiratory exam: Present: CTAB. Absent: chest wall tenderness, rales, rhonchi , wheezes, tachypnea - Cardiovascular Cardiovascular exam: Present: RRR, +S1, +S2 - GI/Abdominal GI/Abdominal exam: Present: distended (Morbidly obese ), no peritoneal signs. Absent: firm, guarding, tenderness Additional comments: Patient has a pendulous abdomen, obese with pannus, erythema over pannus - likely cellulitis which has now improved, edema over pannus - Extremities Exam Extremities exam: Present: pedal edema (Bilateral lower legs 4+ edema ), radial pulses palpable and symmetrical. Absent: calf tenderness, cyanotic - Neurological Exam Neurological exam: Present: alert, oriented X3, no focal deficits. Absent: facial droop, speech deficit
== END 2017-08-27 12:40 | disposition home or self-care (01) ==
LOC: 3ANU 23:26 → EMEROO 23:26 → 3ANU 08-23 04:45 → 3NENU 08-23 13:56
PROVIDERS: ADMIT Hospitalist; ATTEND Student in an Organized Health Care Education/Training Program

== ENCOUNTER 2020-11-16 09:57 | Inpatient (IN) ==
[2020-11-16] MEDS ORDERED: Isovue-370 500 ML BOTTLE IVP ONE (10:45)
[2020-11-16 11:28] LABS: Basophils % 0.2 %; Eosinophils % 0.2 %; Hematocrit 37.7 % (37.5-50.1); Hemoglobin 12.5 g/dL (12.9-16.9); Immature Granulocytes % 0.5 % (0-4); Lymphocytes # 0.8 K/mcL (0.6-4.6); Lymphocytes % 5.7 %; Mean Corpuscular HGB Conc 33.2 g/dL (31.6-35.5); Mean Corpuscular Hemoglobin 32.7 pg (28.0-33.3); Mean Corpuscular Volume 98.7 fL (83.0-100.0); Mean Platelet Volume 10.2 fL (9.4-12.4); Monocytes % 7.3 %; Neutrophils # 11.4 K/mcL (1.6-8.9); Platelet Count 246 K/mcL (140-400); Red Blood Count 3.82 M/mcL (4.19-5.50); Red Cell Distribution Width 12.2 % (11.5-14.5); Segmented Neutrophils % 86.1 %; White Blood Count 13.2 K/mcL (4.3-11.1)
[2020-11-16 11:48] LABS: Calcium 8.2 mg/dL (8.6-10.3); Potassium 4.5 mEq/L (3.5-5.1)
[2020-11-16] MEDS ORDERED: Piperacillin/Tazobactam 3.375 GM in 0.9 % Sodium Chloride Mini Bag 100 ML IVPB ONE (13:08)
[2020-11-16] MEDS ORDERED: Vancomycin 2,000 MG/520 ML IV.SOLN IVPB ONE (13:08)
[2020-11-16] MEDS ORDERED: Naloxone 0.4 MG/ML INJ IVP PRN (13:22)
[2020-11-16] MEDS ORDERED: *HR* Dextrose 50 % in Water (Vial) 50 ML VIAL IVP PRN (14:23)
[2020-11-16] MEDS ORDERED: Dextrose Gel 15 GM/37.5 ML TUBE PO PRN ×2 (14:23)
[2020-11-16] MEDS ORDERED: D5% in Water 1,000 ML IVC PRN (14:23)
[2020-11-16] MEDS: Piperacillin/Tazobactam 3.375 GM in 0.9 % Sodium Chloride Mini Bag 100 ML IVPB SCH (22:36)
[2020-11-16] MEDS: cloNIDine HCL 0.1 MG TABLET PO SCH ×2 (22:38)
[2020-11-16] MEDS: hydrALAZINE 25 MG TABLET PO SCH ×2 (22:38)
[2020-11-16] MEDS: Insulin LISPRO 300 UNITS/3 ML VIAL SUBQ SCH (22:39)
[2020-11-16] MEDS: ALPRAZolam 1 MG TABLET PO PRN (22:51)
[2020-11-17] MEDS: 0.9 % Sodium Chloride 1,000 ML IVC SCH ×2 (02:46→16:28)
[2020-11-17] MEDS: Vancomycin 2,000 MG/520 ML IV.SOLN IVPB SCH ×2 (02:58→16:26)
[2020-11-17] MEDS: Piperacillin/Tazobactam 3.375 GM in 0.9 % Sodium Chloride Mini Bag 100 ML IVPB SCH ×3 (05:14→21:50)
[2020-11-17 06:29] LABS: Basophils # 0.1 K/mcL (0.0-0.2); Basophils % 0.6 %; Eosinophils # 0.2 K/mcL (0.0-0.6); Eosinophils % 1.5 %; Hematocrit 38.4 % (37.5-50.1); Hemoglobin 12.4 g/dL (12.9-16.9); Immature Granulocytes % 0.5 % (0-4); Lymphocytes # 1.2 K/mcL (0.6-4.6); Lymphocytes % 11.4 %; Mean Corpuscular HGB Conc 32.3 g/dL (31.6-35.5); Mean Corpuscular Volume 99.2 fL (83.0-100.0); Mean Platelet Volume 10.1 fL (9.4-12.4); Monocytes # 0.9 K/mcL (0.0-1.3); Monocytes % 8.8 %; Neutrophils # 7.9 K/mcL (1.6-8.9); Platelet Count 274 K/mcL (140-400); Red Blood Count 3.87 M/mcL (4.19-5.50); Red Cell Distribution Width 12.1 % (11.5-14.5); Segmented Neutrophils % 77.2 %; White Blood Count 10.2 K/mcL (4.3-11.1)
[2020-11-17 06:49] LABS: Calcium 8.1 mg/dL (8.6-10.3); Magnesium 1.6 mg/dL (1.6-2.6); Phosphorous 3.7 mg/dL (2.7-4.5); Potassium 4.2 mEq/L (3.5-5.1)
[2020-11-17 06:50] LABS: Albumin 3.4 g/dL (3.5-5.7); Albumin/Globulin Ratio 0.9 (1.1-2.2); Bilirubin,Direct 0.3 mg/dL (0.0-0.2); Bilirubin,Indirect 0.6 mg/dL (0.0-1.0); Bilirubin,Total 0.9 mg/dL (0.3-1.0); Globulin 3.6 g/dL (2.4-3.5)
[2020-11-17 08:02] LABS: Estimated Average Glucose 160 mg/dl; Hemoglobin A1C 7.2 %
[2020-11-17] MEDS: Metoprolol XL (24 HR) Succ 25 MG TAB.ER.24H PO SCH (08:03)
[2020-11-17] MEDS: hydrALAZINE 25 MG TABLET PO SCH ×3 (08:04→21:47)
[2020-11-17] MEDS: cloNIDine HCL 0.1 MG TABLET PO SCH ×2 (08:04→21:47)
[2020-11-17] MEDS: Insulin LISPRO 300 UNITS/3 ML VIAL SUBQ SCH ×3 (08:13→17:27)
[2020-11-17] MEDS: *HR* Rivaroxaban 10 MG TABLET PO SCH (16:26)
[2020-11-17] MEDS: ALPRAZolam 1 MG TABLET PO PRN ×2 (17:20→21:54)
[2020-11-18] MEDS: Vancomycin 2,000 MG/520 ML IV.SOLN IVPB SCH ×2 (01:53→13:22)
[2020-11-18] MEDS: Piperacillin/Tazobactam 3.375 GM in 0.9 % Sodium Chloride Mini Bag 100 ML IVPB SCH ×3 (05:19→20:14)
[2020-11-18 05:28] LABS: Basophils % 0.5 %; Eosinophils # 0.2 K/mcL (0.0-0.6); Eosinophils % 3.1 %; Hematocrit 35.3 % (37.5-50.1); Hemoglobin 11.2 g/dL (12.9-16.9); Immature Granulocytes % 0.4 % (0-4); Lymphocytes # 1.3 K/mcL (0.6-4.6); Lymphocytes % 17.1 %; Mean Corpuscular HGB Conc 31.7 g/dL (31.6-35.5); Mean Corpuscular Hemoglobin 31.9 pg (28.0-33.3); Mean Corpuscular Volume 100.6 fL (83.0-100.0); Mean Platelet Volume 10.1 fL (9.4-12.4); Monocytes # 0.8 K/mcL (0.0-1.3); Monocytes % 10.1 %; Neutrophils # 5.4 K/mcL (1.6-8.9); Platelet Count 266 K/mcL (140-400); Red Blood Count 3.51 M/mcL (4.19-5.50); Red Cell Distribution Width 12.1 % (11.5-14.5); Segmented Neutrophils % 68.8 %; White Blood Count 7.9 K/mcL (4.3-11.1)
[2020-11-18 05:39] LABS: Calcium 7.8 mg/dL (8.6-10.3); Potassium 4.3 mEq/L (3.5-5.1)
[2020-11-18] MEDS: hydrALAZINE 25 MG TABLET PO SCH ×3 (08:45→20:13)
[2020-11-18] MEDS: Insulin LISPRO 300 UNITS/3 ML VIAL SUBQ SCH ×3 (08:45→18:31)
[2020-11-18] MEDS: cloNIDine HCL 0.1 MG TABLET PO SCH ×2 (08:46→20:13)
[2020-11-18] MEDS: Metoprolol XL (24 HR) Succ 25 MG TAB.ER.24H PO SCH (08:46)
[2020-11-18] MEDS: ALPRAZolam 1 MG TABLET PO PRN ×2 (08:53→20:26)
[2020-11-18] MEDS: *HR* Rivaroxaban 10 MG TABLET PO SCH (18:31)
[2020-11-19] MEDS ORDERED: Vancomycin 2,000 MG/520 ML IV.SOLN IVPB SCH (02:00)
[2020-11-19 03:57] LABS: Basophils % 0.6 %; Eosinophils # 0.3 K/mcL (0.0-0.6); Eosinophils % 3.6 %; Hematocrit 36.9 % (37.5-50.1); Hemoglobin 11.9 g/dL (12.9-16.9); Immature Granulocytes % 0.6 % (0-4); Lymphocytes # 1.4 K/mcL (0.6-4.6); Mean Corpuscular HGB Conc 32.2 g/dL (31.6-35.5); Mean Corpuscular Hemoglobin 33.1 pg (28.0-33.3); Mean Corpuscular Volume 102.5 fL (83.0-100.0); Mean Platelet Volume 9.7 fL (9.4-12.4); Monocytes # 0.6 K/mcL (0.0-1.3); Monocytes % 8.5 %; Neutrophils # 4.9 K/mcL (1.6-8.9); Platelet Count 254 K/mcL (140-400); Red Cell Distribution Width 12.1 % (11.5-14.5); Segmented Neutrophils % 67.7 %; White Blood Count 7.2 K/mcL (4.3-11.1)
[2020-11-19 04:09] LABS: Calcium 7.8 mg/dL (8.6-10.3); Magnesium 1.6 mg/dL (1.6-2.6); Potassium 4.3 mEq/L (3.5-5.1)
[2020-11-19] MEDS: Piperacillin/Tazobactam 3.375 GM in 0.9 % Sodium Chloride Mini Bag 100 ML IVPB SCH ×2 (05:19→12:19)
[2020-11-19 07:06] VITALS: BP 152/84
[2020-11-19] MEDS: cloNIDine HCL 0.1 MG TABLET PO SCH (08:32)
[2020-11-19] MEDS: hydrALAZINE 25 MG TABLET PO SCH (08:32)
[2020-11-19] MEDS: Metoprolol XL (24 HR) Succ 25 MG TAB.ER.24H PO SCH (08:33)
[2020-11-19] MEDS: Insulin LISPRO 300 UNITS/3 ML VIAL SUBQ SCH ×2 (08:33→12:15)
[2020-11-19] MEDS ORDERED: FLU Vac QV 20-21 (6Month+)/PF 0.5 ML SYRINGE IM ONE (11:42)
[2020-11-20] MEDS ORDERED: Vancomycin 2,000 MG/520 ML IV.SOLN IVPB SCH (14:00)
== END 2020-11-19 13:44 | disposition home or self-care (01) | DRG 383 ==
LOC: 3BNU 09:57 → EMEROOARM 09:57 → SUATTDRO 19:02 → 3BNU 20:10
PROVIDERS: ADMIT Student in an Organized Health Care Education/Training Program; ATTEND Internal Medicine